=== PATIENT | female | born 1955 | race Caucasian/White ===

== ENCOUNTER 2021-08-02 17:41 | Inpatient (IN) | payer MEDICARE ==
[2021-08-02 18:25] LABS: #Lymphocytes 1.5 thou/uL (1.20-3.40); #Monocytes 0.5 thou/uL (0.11-0.59); #Neutrophils 6.9 thou/uL (1.40-6.50); %Basophils 0.3 % (0.0-1.0); %Eosinophils 0.5 % (0.0-10.0); %Lymphocytes 16.3 % (21.0-51.0); %Neutrophils 76.9 % (42.0-75.0); Hemoglobin 14.2 g/dL (12.0-16.0); Mean Corpuscular HGB CONC 33.7 g/dL (32.0-36.0); Mean Corpuscular Hemoglobin 31.8 pg (27.0-31.0); Mean Corpuscular Volume 94.3 fL (78.0-98.0); Mean Platelet Volume 8.1 fL (7.4-10.4); Platelet Count 214 thou/uL (130-400); RBC Distribution Width 11.6 % (11.5-14.5); Red Blood Cell (RBC) Count 4.46 mill/uL (4.20-5.40)
[2021-08-02 18:49] LABS: ALT (SGPT) 24 U/L (8-55); AST (SGOT) 84 U/L (5-34); Albumin 3.6 g/dL (3.4-4.8); Alkaline Phosphatase 63 U/L (40-110); Anion Gap 12 mmol/L (10-20); BUN (Urea Nitrogen) 10 mg/dL (9.8-20.1); Bilirubin, Total 0.4 mg/dL (0.2-1.2); CK (CPK) 932 U/L (29-168); Calc. Creatinine Clearance 0 mL/min (70-130); Carbon Dioxide 25 mmol/L (23-31); Chloride 108 mmol/L (98-107); Globulin 2.9 g/dL (2.4-3.5); Glucose 113 mg/dL (80-115); Lipase 32 U/L (8-78); Potassium 3.9 mmol/L (3.5-5.1); Protein, Total 6.5 g/dL (5.8-8.1); Sodium 141 mmol/L (136-145)
[2021-08-02 19:37] LABS: CKMB 99.7 ng/mL (0-6.6)
[2021-08-02] MEDS ORDERED: Morphine 4 MG/ML VIAL ONE (19:47)
[2021-08-02] MEDS ORDERED: Enoxaparin Sodium 60 MG/0.6 ML SYRINGE ONE (21:07)
[2021-08-02] MEDS ORDERED: Ondansetron ODT 4 MG TAB SL PRN (21:45)
[2021-08-02] MEDS ORDERED: Sodium Chloride 0.9% 1,000 ML IV SCH (21:45)
[2021-08-02] MEDS ORDERED: Ondansetron PF 4 MG/2 ML Vial IVP PRN (21:45)
[2021-08-02 22:40] LABS: Critical Call Chem Troponin I RESULT DECREASING; Troponin I 20.674 ng/mL (< 0.028)
[2021-08-02 22:43] VITALS: BMI 24.0
[2021-08-03 01:42] LABS: Critical Call Chem Troponin I RESULT DECREASING; Troponin I 19.962 ng/mL (< 0.028)
[2021-08-03] MEDS: Nitroglycerin 0.4 MG TAB (25 Tab Bottle) ONE ×2 (02:34→02:44)
[2021-08-03] MEDS ORDERED: Nitroglycerin 0.4 MG TAB (25 Tab Bottle) SL PRN (02:43)
[2021-08-03] MEDS: Morphine 2 MG/ML VIAL SLOW IVP PRN ×3 (02:48→14:04)
[2021-08-03] MEDS: Enoxaparin Sodium 60 MG/0.6 ML SYRINGE SC SCH ×2 (09:16→20:40)
[2021-08-03] MEDS: Aspirin Chewable 81 MG TAB PO SCH (09:16)
[2021-08-03] MEDS: Escitalopram Oxalate 20 mg Tablet PO SCH (09:16)
[2021-08-03] MEDS ORDERED: hydrALAZINE 20 MG/ML VIAL SLOW IVP PRN (15:25)
[2021-08-03] MEDS ORDERED: Communication Order-Pharmacy FS PRN (17:00)
[2021-08-03] MEDS ORDERED: Ondansetron PF 4 MG/2 ML Vial IVP PRN (20:16)
[2021-08-03] MEDS: Gabapentin 300 MG CAP PO SCH (20:41)
[2021-08-03] MEDS: Nitroglycerin 2% Ointment 1 INCH/1 GM Packet TOP SCH (23:45)
[2021-08-04 05:08] LABS: #Basophils 0.1 thou/uL (0.0-0.2); #Lymphocytes 2.5 thou/uL (1.20-3.40); #Neutrophils 8.4 thou/uL (1.40-6.50); %Basophils 0.4 % (0.0-1.0); %Eosinophils 0.4 % (0.0-10.0); %Lymphocytes 20.6 % (21.0-51.0); %Monocytes 8.5 % (0.0-10.0); %Neutrophils 70.1 % (42.0-75.0); Hemoglobin 13.9 g/dL (12.0-16.0); Mean Corpuscular HGB CONC 33.9 g/dL (32.0-36.0); Mean Corpuscular Hemoglobin 31.9 pg (27.0-31.0); Mean Platelet Volume 8.4 fL (7.4-10.4); Platelet Count 221 thou/uL (130-400); RBC Distribution Width 11.7 % (11.5-14.5); Red Blood Cell (RBC) Count 4.34 mill/uL (4.20-5.40)
[2021-08-04 05:31] LABS: Anion Gap 18 mmol/L (10-20); BUN (Urea Nitrogen) 5 mg/dL (9.8-20.1); Calc. Creatinine Clearance 66 mL/min (70-130); Carbon Dioxide 21 mmol/L (23-31); Chloride 105 mmol/L (98-107); Glucose 109 mg/dL (80-115); Potassium 3.6 mmol/L (3.5-5.1); Sodium 140 mmol/L (136-145)
[2021-08-04] MEDS: Aspirin Chewable 81 MG TAB PO SCH (05:59)
[2021-08-04] MEDS: Nitroglycerin 2% Ointment 1 INCH/1 GM Packet TOP SCH ×3 (05:59→17:41)
[2021-08-04] MEDS: Escitalopram Oxalate 20 mg Tablet PO SCH (05:59)
[2021-08-04] MEDS ORDERED: Verapamil 5 MG/2 ML VIAL ONE (06:26)
[2021-08-04] MEDS ORDERED: Lidocaine 1% PF 5 ML VIAL ONE (06:26)
[2021-08-04] MEDS ORDERED: Heparin 10,000 UNITS/ 10 ML VIAL ONE (06:26)
[2021-08-04] MEDS ORDERED: Nitroglycerin 100MG/250ML BOT 250 ML ONE (06:26)
[2021-08-04] MEDS ORDERED: Midazolam HCl 2 mg/2 ml Vial ONE (07:14)
[2021-08-04] MEDS ORDERED: Fentanyl 100 MCG/2 ML VIAL ONE (07:14)
[2021-08-04] MEDS ORDERED: Nitroglycerin 0.4 MG TAB (25 Tab Bottle) SL PRN (08:20)
[2021-08-04] MEDS ORDERED: Acetaminophen/Codeine 30-300mg Tablet PO PRN ×2 (08:20)
[2021-08-04] MEDS ORDERED: Sodium Chloride 0.9% 200 ML IV PRN (08:20)
[2021-08-04] MEDS ORDERED: Iopamidol 370 76% 100 ML VIAL ONE (09:46)
[2021-08-04] MEDS ORDERED: Enoxaparin Sodium 60 MG/0.6 ML SYRINGE SC SCH ×2 (11:00→21:00)
[2021-08-04] MEDS: Metoprolol Tartrate 25 MG TAB PO SCH ×2 (11:03→20:48)
[2021-08-04 16:46] LABS: Campy jejuni + coli by PCR Negative (Negative); STEC Shiga Toxin 1+2 Negative (Negative); Salmonella spp. by PCR Negative (Negative); Shigella spp + EIEC by PCR Negative (Negative)
[2021-08-04] MEDS ORDERED: Communication Order-Pharmacy FS SCH (17:42)
[2021-08-04] MEDS: Gabapentin 300 MG CAP PO SCH (20:48)
[2021-08-04] MEDS ORDERED: Atorvastatin Calcium 40 MG TAB PO SCH (21:00)
[2021-08-04] MEDS ORDERED: Floranex 1 GM Packet PO SCH (21:00)
[2021-08-05] MEDS: Nitroglycerin 2% Ointment 1 INCH/1 GM Packet TOP SCH ×2 (00:49→11:36)
[2021-08-05 04:34] LABS: #Basophils 0.1 thou/uL (0.0-0.2); #Eosinphils 0.1 thou/uL (0.0-0.7); #Lymphocytes 2.3 thou/uL (1.20-3.40); #Monocytes 1.2 thou/uL (0.11-0.59); %Basophils 0.6 % (0.0-1.0); %Eosinophils 0.9 % (0.0-10.0); %Lymphocytes 21.7 % (21.0-51.0); %Monocytes 11.1 % (0.0-10.0); %Neutrophils 65.6 % (42.0-75.0); Hemoglobin 12.3 g/dL (12.0-16.0); Mean Corpuscular HGB CONC 33.1 g/dL (32.0-36.0); Mean Corpuscular Hemoglobin 31.5 pg (27.0-31.0); Mean Corpuscular Volume 95.2 fL (78.0-98.0); Platelet Count 195 thou/uL (130-400); RBC Distribution Width 11.7 % (11.5-14.5); Red Blood Cell (RBC) Count 3.91 mill/uL (4.20-5.40); White Blood Cell (WBC) Count 10.6 thou/uL (4.8-10.8)
[2021-08-05 04:54] LABS: Anion Gap 14 mmol/L (10-20); BUN (Urea Nitrogen) 8 mg/dL (9.8-20.1); Calc. Creatinine Clearance 67 mL/min (70-130); Calcium 8.7 mg/dL (7.8-10.44); Carbon Dioxide 24 mmol/L (23-31); Chloride 105 mmol/L (98-107); Glucose 96 mg/dL (80-115); Potassium 3.2 mmol/L (3.5-5.1); Sodium 140 mmol/L (136-145)
[2021-08-05] MEDS: Metoprolol Tartrate 25 MG TAB PO SCH (05:22)
[2021-08-05] MEDS ORDERED: fentaNYL Citrate/PF 100 MCG/2 ML SYRINGE ONE ×2 (06:25)
[2021-08-05] MEDS ORDERED: Midazolam HCl 5 mg/5 ml Vial ONE (06:25)
[2021-08-05] MEDS ORDERED: Dexamethasone 4 mg/ml Vial ONE (06:46)
[2021-08-05] MEDS ORDERED: EPINEPHrine 1 MG/ML AMP ONE (06:46)
[2021-08-05] MEDS ORDERED: Bupivacaine PF 0.5% 30 ML VIAL ONE (06:46)
[2021-08-05] MEDS ORDERED: Albumin 5% 500 ML ONE (06:46)
[2021-08-05] MEDS ORDERED: Midazolam HCl 2 mg/2 ml Vial ONE (06:58)
[2021-08-05] MEDS ORDERED: Lidocaine 1% MPF 2 ML VIAL ONE (06:58)
[2021-08-05] MEDS ORDERED: Heparin 10,000 UNITS/1 ML VIAL 30,000 UNITS in Sodium Chloride 0.9% 1,000 ML FS SCH (07:15)
[2021-08-05] MEDS ORDERED: Sodium Chloride 0.9% 100 ML ONE (07:20)
[2021-08-05] MEDS ORDERED: CEFAZOLIN 2 GM VIAL ONE (07:20)
[2021-08-05] MEDS ORDERED: CEFAZOLIN 2 GM in Sodium Chloride 0.9% 100 ML IVPB SCH (07:30)
[2021-08-05] MEDS ORDERED: Calcium Chloride 1 GM/10 ML Abboject SYRINGE ONE (07:31)
[2021-08-05] MEDS ORDERED: Mannitol 12.5 GM/50 ML ONE (07:31)
[2021-08-05] MEDS ORDERED: Papaverine 60 MG/2 ML VIAL ONE (07:31)
[2021-08-05] MEDS ORDERED: PROPOFOL 200 MG/20 ML VIAL ONE (07:31)
[2021-08-05] MEDS ORDERED: Thrombin 5000 UNITS/5 ML VIAL ONE (07:31)
[2021-08-05] MEDS ORDERED: Magnesium Sulfate 1 GM/2 ML VIAL ONE (07:31)
[2021-08-05] MEDS ORDERED: Lidocaine 2% PF 100 mg/5 ml Syringe ONE (07:31)
[2021-08-05] MEDS ORDERED: Ondansetron PF 4 MG/2 ML Vial ONE (07:31)
[2021-08-05] MEDS ORDERED: Labetalol HCl 100 MG/20 ML VIAL ONE (07:31)
[2021-08-05] MEDS ORDERED: Protamine Sulfate 250 MG/25 ML VIAL ONE (07:31)
[2021-08-05] MEDS ORDERED: DOPamine 400 MG/10 ML VIAL ONE (07:31)
[2021-08-05] MEDS ORDERED: Heparin 5,000 UNITS/ML VIAL ONE (07:31)
[2021-08-05] MEDS ORDERED: Vecuronium 10 MG VIAL ONE ×2 (07:31→13:02)
[2021-08-05] MEDS ORDERED: Cardioplegic Soln 1,000 ML BAG ONE (07:31)
[2021-08-05] MEDS ORDERED: Sodium Bicarb 50 MEQ/50 ML Abboject 8.4% SYRINGE ONE (07:31)
[2021-08-05] MEDS ORDERED: Aminocaproic Acid 5 GM/20 ML VIAL ONE (07:31)
[2021-08-05] MEDS ORDERED: Heparin 30,000 units/30 ml VIAL ONE (07:31)
[2021-08-05] MEDS ORDERED: Norepinephrine 4 MG/4 ML VIAL ONE (11:19)
[2021-08-05] MEDS ORDERED: Heparin 10,000 UNITS/ 10 ML VIAL ONE (11:33)
[2021-08-05] MEDS ORDERED: Amiodarone 150 MG/3 ML VIAL ONE (12:09)
[2021-08-05] MEDS ORDERED: Milrinone 10 MG/10 ML VIAL ONE (12:23)
[2021-08-05] MEDS ORDERED: Milrinone Lactate/D5W 20 MG in Premix Bag 1 BAG IV SCH (12:45)
[2021-08-05] MEDS ORDERED: CEFAZOLIN 1 GM VIAL ONE (12:53)
[2021-08-05] MEDS ORDERED: PHENYLEPHRINE-NS 100 MCG/ML 10 ML SYRINGE ONE (13:02)
[2021-08-05] MEDS ORDERED: Albumin 5% 250 ML ONE (13:13)
[2021-08-05] MEDS ORDERED: Nitroglycerin 50 MG/250 ML BOT 250 ML IVPB PRN (14:42)
[2021-08-05] MEDS ORDERED: Bisacodyl 10 MG SUPP PR PRN (14:42)
[2021-08-05] MEDS ORDERED: Magnesium 2 GM/50 ML(in water) 2 GM in Premix Bag 1 BAG IVPB SCH (14:42)
[2021-08-05] MEDS ORDERED: Ondansetron PF 4 MG/2 ML Vial IVP PRN (14:42)
[2021-08-05] MEDS ORDERED: Bisacodyl 5 MG TAB PO PRN (14:42)
[2021-08-05] MEDS ORDERED: Morphine 2 MG/ML VIAL SLOW IVP PRN (14:42)
[2021-08-05] MEDS ORDERED: traMADol HCl 50 MG TAB PO PRN ×2 (14:42)
[2021-08-05] MEDS ORDERED: Hetastarch 6% 500 ML 500 ML IVPB PRN (14:42)
[2021-08-05] MEDS ORDERED: Mag-Al 1200 mg/1200 mg/30 ML UDCUP PO PRN (14:42)
[2021-08-05] MEDS ORDERED: Fentanyl 100 MCG/2 ML VIAL SLOW IVP PRN ×2 (14:42)
[2021-08-05] MEDS ORDERED: Ventilator Sedation Protocol 1 EACH FS ONE (14:42)
[2021-08-05] MEDS ORDERED: DOPamine 400 MG/D5W 250 ML 250 ML IVPB PRN (14:42)
[2021-08-05] MEDS ORDERED: Guaifenesin DM 100-10/5 ML UDCUP PO PRN (14:42)
[2021-08-05] MEDS ORDERED: Acetaminophen 325 MG TAB PO PRN (14:42)
[2021-08-05] MEDS ORDERED: Norepinephrine 8 MG/0.9% NS 250 ML IVPB PRN (14:42)
[2021-08-05] MEDS ORDERED: hydrALAZINE 20 MG/ML VIAL SLOW IVP PRN (14:42)
[2021-08-05] MEDS ORDERED: Milrinone 20 MG in Sodium Chloride 0.9% 100 ML IVPB SCH (14:45)
[2021-08-05 14:55] LABS: #Eosinphils 0.1 thou/uL (0.0-0.7); #Lymphocytes 1.1 thou/uL (1.20-3.40); #Monocytes 1.1 thou/uL (0.11-0.59); #Neutrophils 16.7 thou/uL (1.40-6.50); %Basophils 0.1 % (0.0-1.0); %Eosinophils 0.5 % (0.0-10.0); %Lymphocytes 5.8 % (21.0-51.0); %Neutrophils 87.6 % (42.0-75.0); Hemoglobin 12.2 g/dL (12.0-16.0); Mean Corpuscular HGB CONC 32.3 g/dL (32.0-36.0); Mean Corpuscular Hemoglobin 29.9 pg (27.0-31.0); Mean Corpuscular Volume 92.5 fL (78.0-98.0); Mean Platelet Volume 8.5 fL (7.4-10.4); Platelet Count 181 thou/uL (130-400); RBC Distribution Width 13.8 % (11.5-14.5); Red Blood Cell (RBC) Count 4.09 mill/uL (4.20-5.40); White Blood Cell (WBC) Count 19.1 thou/uL (4.8-10.8)
[2021-08-05] MEDS ORDERED: Lorazepam 2 MG/ML VIAL SLOW IVP PRN (15:00)
[2021-08-05] MEDS ORDERED: Propofol 1,000 MG/100 ML VIAL IV PRN (15:00)
[2021-08-05] MEDS ORDERED: Dextrose 50% Abboject 50 ML SYRINGE SLOW IVP PRN (15:00)
[2021-08-05] MEDS ORDERED: Fentanyl CADD 100 ML IV SCH (15:00)
[2021-08-05] MEDS ORDERED: Dextrose 5% in Water 1,000 ML IV PRN (15:00)
[2021-08-05] MEDS ORDERED: Propofol BOLUS 1,000 MG/100 ML VIAL IV PRN (15:00)
[2021-08-05] MEDS ORDERED: Fentanyl BOLUS 250 ML IVPB PRN (15:00)
[2021-08-05] MEDS ORDERED: Morphine 4 MG/ML VIAL SLOW IVP PRN (15:00)
[2021-08-05] MEDS ORDERED: DISCONTINUE PREVIOUS NARCOTIC PAIN MEDICATIONS AND BENZODIAZEPINES FS SCH (15:00)
[2021-08-05 15:03] LABS: INR-International Normal Ratio 1.3; PTT 33.5 sec (22.9-36.1); Prothrombin Time 16.3 sec (12.0-14.7)
[2021-08-05] MEDS: NS 0.9% w/ 20 MEQ KCL 1,000 ML IV SCH (15:12)
[2021-08-05 15:14] LABS: Anion Gap 19 mmol/L (10-20); BUN (Urea Nitrogen) 8 mg/dL (9.8-20.1); Calc. Creatinine Clearance 69 mL/min (70-130); Calcium 8.2 mg/dL (7.8-10.44); Carbon Dioxide 21 mmol/L (23-31); Chloride 111 mmol/L (98-107); Estimated GFR 89; Glucose 216 mg/dL (80-115); Potassium 3.3 mmol/L (3.5-5.1); Sodium 148 mmol/L (136-145)
[2021-08-05] MEDS: Insulin Regular 300 UNITS/3 ML VIAL SC PRN ×2 (15:17→17:37)
[2021-08-05 15:18] LABS: Base Excess (BEa) -4.6 mEq/L (-2.0 to +3.0); CO2 Tension 35.4 mmHg (35.0-45.0); Calcium, Ionized (arterial) 0.98 mmol/L (1.12-1.30); Carboxyhemoglobin (COHb) 0.5 gm% (0.0-3.0); Hemoglobin (Hb) 13.1 g/dL (12.0-16.0); O2 Tension (PaO2), arterial 102.3 mmHg (> 80.0); Potassium - ABG Lab 3.21 mmol/L (3.70-5.30); pH, Arterial 7.37 (7.35-7.45)
[2021-08-05] MEDS: fentaNYL Citrate-0.9 % NaCl/PF 100 ML IV SCH (15:31)
[2021-08-05] MEDS: CEFAZOLIN 2 GM in Sodium Chloride 0.9% 100 ML IVPB SCH ×2 (15:32→22:42)
[2021-08-05 16:11] LABS: Puncture Site Arterial Line
[2021-08-05] MEDS: Potassium Chloride 20 MEQ/100 ML PREMIX BAG IVPB PRN (16:34)
[2021-08-05] MEDS: Ketorolac Tromethamine 30 MG/ML VIAL IVP SCH ×2 (17:19→23:56)
[2021-08-05 17:45] LABS: Glucose 234 mg/dL (80-115)
[2021-08-05] MEDS: Famotidine/PF 20 mg/2ml Vial SLOW IVP SCH (20:16)
[2021-08-05 21:26] LABS: Hemoglobin 11.3 g/dL (12.0-16.0)
[2021-08-05 21:43] LABS: Glucose 186 mg/dL (80-115)
[2021-08-05 21:56] LABS: Anion Gap 11 mmol/L (10-20); BUN (Urea Nitrogen) 12 mg/dL (9.8-20.1); Calc. Creatinine Clearance 75 mL/min (70-130); Calcium 7.7 mg/dL (7.8-10.44); Carbon Dioxide 24 mmol/L (23-31); Chloride 116 mmol/L (98-107); Estimated GFR 95; Glucose 187 mg/dL (80-115); Potassium 2.5 mmol/L (3.5-5.1); Sodium 148 mmol/L (136-145)
[2021-08-05] MEDS ORDERED: Potassium Chloride 40 MEQ in Premix Bag 1 BAG IVPB SCH (22:30)
[2021-08-06] MEDS ORDERED: Milrinone Lactate/D5W 20 MG in Premix Bag 1 BAG IVPB SCH (00:01)
[2021-08-06] MEDS: NS 0.9% w/ 20 MEQ KCL 1,000 ML IV SCH (01:44)
[2021-08-06] MEDS: Insulin Regular 300 UNITS/3 ML VIAL SC PRN (04:32)
[2021-08-06 04:48] LABS: #Basophils 0.1 thou/uL (0.0-0.2); #Lymphocytes 0.7 thou/uL (1.20-3.40); #Monocytes 1.2 thou/uL (0.11-0.59); #Neutrophils 9.1 thou/uL (1.40-6.50); %Basophils 0.8 % (0.0-1.0); %Eosinophils 0.1 % (0.0-10.0); %Lymphocytes 5.9 % (21.0-51.0); %Monocytes 10.7 % (0.0-10.0); %Neutrophils 82.5 % (42.0-75.0); Hemoglobin 10.6 g/dL (12.0-16.0); Mean Corpuscular HGB CONC 33.1 g/dL (32.0-36.0); Mean Corpuscular Hemoglobin 30.6 pg (27.0-31.0); Mean Corpuscular Volume 92.2 fL (78.0-98.0); Mean Platelet Volume 9.2 fL (7.4-10.4); Platelet Count 124 thou/uL (130-400); RBC Distribution Width 14.4 % (11.5-14.5); Red Blood Cell (RBC) Count 3.47 mill/uL (4.20-5.40); White Blood Cell (WBC) Count 11.1 thou/uL (4.8-10.8)
[2021-08-06 05:15] LABS: Anion Gap 12 mmol/L (10-20); BUN (Urea Nitrogen) 12 mg/dL (9.8-20.1); Calc. Creatinine Clearance 75 mL/min (70-130); Calcium 7.7 mg/dL (7.8-10.44); Carbon Dioxide 23 mmol/L (23-31); Chloride 118 mmol/L (98-107); Estimated GFR 95; Glucose 130 mg/dL (80-115); Potassium 3.8 mmol/L (3.5-5.1); Sodium 149 mmol/L (136-145)
[2021-08-06] MEDS: Ketorolac Tromethamine 30 MG/ML VIAL IVP SCH ×3 (05:46→18:40)
[2021-08-06] MEDS: CEFAZOLIN 2 GM in Sodium Chloride 0.9% 100 ML IVPB SCH (05:46)
[2021-08-06] MEDS: Potassium Chloride 20 MEQ/100 ML PREMIX BAG IVPB PRN (05:47)
[2021-08-06] MEDS: fentaNYL Citrate-0.9 % NaCl/PF 100 ML IV SCH (06:28)
[2021-08-06] MEDS ORDERED: NS 0.9% w/ 20 MEQ KCL 1,000 ML IV SCH (07:06)
[2021-08-06] MEDS ORDERED: Furosemide 20 MG/2 ML VIAL SLOW IVP SCH (07:15)
[2021-08-06] MEDS ORDERED: Potassium Chloride 20 MEQ in Premix Bag 1 BAG IVPB SCH (07:30)
[2021-08-06 07:35] LABS: Actual Bicarbonate (HCO3a) 23.4 mEq/L (22-28); Base Excess (BEa) -1.2 mEq/L (-2.0 to +3.0); CO2 Tension 38.7 mmHg (35.0-45.0); Calcium, Ionized (arterial) 1.15 mmol/L (1.12-1.30); Carboxyhemoglobin (COHb) 0.3 gm% (0.0-3.0); Hemoglobin (Hb) 11.5 g/dL (12.0-16.0); O2 Tension (PaO2), arterial 164.1 mmHg (> 80.0); Potassium - ABG Lab 4.18 mmol/L (3.70-5.30)
[2021-08-06 08:12] LABS: Puncture Site Arterial Line
[2021-08-06 08:13] LABS: ALV-art Gradient 72.725 mmHg (0-20)
[2021-08-06] MEDS ORDERED: Aspirin 325 MG TAB PO SCH (09:00)
[2021-08-06 09:56] LABS: Actual Bicarbonate (HCO3a) 22.8 mEq/L (22-28); Base Excess (BEa) -2.4 mEq/L (-2.0 to +3.0); Calcium, Ionized (arterial) 1.09 mmol/L (1.12-1.30); Carboxyhemoglobin (COHb) 0.2 gm% (0.0-3.0); Hemoglobin (Hb) 10.9 g/dL (12.0-16.0); O2 Tension (PaO2), arterial 171.6 mmHg (> 80.0); Potassium - ABG Lab 4.15 mmol/L (3.70-5.30); pH, Arterial 7.36 (7.35-7.45)
[2021-08-06] MEDS: Magnesium 2 GM/50 ML(in water) 2 GM in Premix Bag 1 BAG IVPB SCH (10:08)
[2021-08-06] MEDS: Famotidine/PF 20 mg/2ml Vial SLOW IVP SCH ×2 (10:08→20:35)
[2021-08-06 10:12] LABS: Glucose 122 mg/dL (80-115)
[2021-08-06 15:05] LABS: Glucose 121 mg/dL (80-115)
[2021-08-06] MEDS ORDERED: Carvedilol 3.125 MG TAB PO SCH (17:45)
[2021-08-06] MEDS ORDERED: Furosemide 20 MG TAB PO SCH (17:45)
[2021-08-06] MEDS ORDERED: Fentanyl 100 MCG/2 ML VIAL SLOW IVP PRN ×2 (20:23)
[2021-08-06] MEDS: traMADol HCl 50 MG TAB PO PRN (20:36)
[2021-08-07] MEDS: Ketorolac Tromethamine 30 MG/ML VIAL IVP SCH ×5 (00:01→23:29)
[2021-08-07 04:56] LABS: Anion Gap 14 mmol/L (10-20); BUN (Urea Nitrogen) 18 mg/dL (9.8-20.1); Calc. Creatinine Clearance 70 mL/min (70-130); Calcium 8.2 mg/dL (7.8-10.44); Carbon Dioxide 24 mmol/L (23-31); Chloride 113 mmol/L (98-107); Estimated GFR 93; Glucose 97 mg/dL (80-115); Sodium 146 mmol/L (136-145)
[2021-08-07 05:33] LABS: #Lymphocytes 2.7 thou/uL (1.20-3.40); #Monocytes 1.1 thou/uL (0.11-0.59); #Neutrophils 11.7 thou/uL (1.40-6.50); %Basophils 0.2 % (0.0-1.0); %Eosinophils 0.2 % (0.0-10.0); %Lymphocytes 17.6 % (21.0-51.0); %Monocytes 6.8 % (0.0-10.0); %Neutrophils 75.2 % (42.0-75.0); Anisocytosis SLIGHT = 6-15 cells (100X) (0-5/hpf); Hemoglobin 10.5 g/dL (12.0-16.0); MDiff Complete? YES; Mean Corpuscular HGB CONC 31.8 g/dL (32.0-36.0); Mean Corpuscular Hemoglobin 30.2 pg (27.0-31.0); Mean Corpuscular Volume 94.8 fL (78.0-98.0); Mean Platelet Volume 9.8 fL (7.4-10.4); Platelet Count 147 thou/uL (130-400); Red Blood Cell (RBC) Count 3.48 mill/uL (4.20-5.40); White Blood Cell (WBC) Count 15.6 thou/uL (4.8-10.8)
[2021-08-07] MEDS ORDERED: Mag-Al 1200 mg/1200 mg/30 ML UDCUP PO PRN (07:23)
[2021-08-07] MEDS ORDERED: diphenhydrAMINE 25 MG CAP PO PRN (07:23)
[2021-08-07] MEDS ORDERED: Bisacodyl 10 MG SUPP PR PRN (07:23)
[2021-08-07] MEDS ORDERED: Bisacodyl 5 MG TAB PO PRN (07:23)
[2021-08-07] MEDS ORDERED: Zolpidem Tartrate 5 MG TAB PO PRN (07:23)
[2021-08-07] MEDS ORDERED: Guaifenesin DM 100-10/5 ML UDCUP PO PRN (07:23)
[2021-08-07] MEDS ORDERED: Mineral Oil ENEMA PR PRN (07:23)
[2021-08-07] MEDS ORDERED: Nitroglycerin 0.4 MG TAB (25 Tab Bottle) SL PRN (07:23)
[2021-08-07] MEDS ORDERED: Milk Of Magnesia 30 ML UDCUP PO PRN (07:23)
[2021-08-07] MEDS ORDERED: Carvedilol 3.125 MG TAB PO SCH (08:00)
[2021-08-07] MEDS ORDERED: hydrALAZINE 20 MG/ML VIAL SLOW IVP PRN ×4 (09:03→09:43)
[2021-08-07] MEDS: Lisinopril 5 MG TAB PO SCH ×2 (10:06→20:37)
[2021-08-07] MEDS: Furosemide 20 MG TAB PO SCH ×2 (10:07→14:51)
[2021-08-07] MEDS: Carvedilol 6.25 MG TAB PO SCH ×2 (10:07→17:40)
[2021-08-07] MEDS: Potassium Chloride 10 MEQ TAB PO SCH ×2 (10:07→17:40)
[2021-08-07] MEDS: Magnesium 2 GM/50 ML(in water) 2 GM in Premix Bag 1 BAG IVPB SCH (10:09)
[2021-08-07] MEDS: traMADol HCl 50 MG TAB PO PRN (10:21)
[2021-08-07] MEDS: Aspirin 325 mg Enteric Coated Tablet PO SCH (10:21)
[2021-08-08] MEDS: Ketorolac Tromethamine 30 MG/ML VIAL IVP SCH ×3 (05:00→17:58)
[2021-08-08] MEDS: Carvedilol 6.25 MG TAB PO SCH ×2 (10:11→17:58)
[2021-08-08] MEDS: Lisinopril 5 MG TAB PO SCH (10:12)
[2021-08-08] MEDS: Aspirin 325 mg Enteric Coated Tablet PO SCH (10:12)
[2021-08-08] MEDS: Potassium Chloride 10 MEQ TAB PO SCH ×2 (10:12→17:57)
[2021-08-08] MEDS: Furosemide 20 MG TAB PO SCH ×2 (10:12→18:06)
[2021-08-08] MEDS: traMADol HCl 50 MG TAB PO PRN (11:41)
[2021-08-08] MEDS: Atorvastatin Calcium 40 MG TAB PO SCH ×2 (20:45→21:01)
[2021-08-09] MEDS: traMADol HCl 50 MG TAB PO PRN ×2 (00:32→14:45)
[2021-08-09 04:42] LABS: Cardiac Risk 4.9 (Less than 4.5)
[2021-08-09] MEDS ORDERED: Metolazone 5 MG TAB PO SCH (07:00)
[2021-08-09] MEDS: Potassium Chloride 10 MEQ TAB PO SCH ×2 (09:07→17:37)
[2021-08-09] MEDS: Carvedilol 6.25 MG TAB PO SCH ×2 (09:07→17:37)
[2021-08-09] MEDS: Furosemide 20 MG TAB PO SCH ×2 (09:07→14:45)
[2021-08-09] MEDS: Aspirin 325 mg Enteric Coated Tablet PO SCH (09:07)
[2021-08-09] MEDS: Atorvastatin Calcium 40 MG TAB PO SCH (20:51)
[2021-08-09] MEDS ORDERED: Acetaminophen 325 MG TAB PO SCH (23:30)
[2021-08-10] MEDS: traMADol HCl 50 MG TAB PO PRN (06:03)
[2021-08-10] MEDS ORDERED: Empagliflozin 10 MG TAB PO SCH (09:00)
[2021-08-10] MEDS: Aspirin 325 mg Enteric Coated Tablet PO SCH (10:11)
[2021-08-10] MEDS: Carvedilol 6.25 MG TAB PO SCH (10:11)
[2021-08-10] MEDS: Potassium Chloride 10 MEQ TAB PO SCH (10:11)
[2021-08-10] MEDS: Furosemide 20 MG TAB PO SCH (10:12)
[2021-08-10 14:57] VITALS: BP 135/80; TEMP 98
[2021-08-15 15:00] LABS: Actual Bicarbonate (HCO3a) 21.4 mEq/L (22-28); Analyzer IN Cardio OR; CO2 Tension 28.5 mmHg (35.0-45.0); Calcium, Ionized (arterial) 1.09 mmol/L (1.12-1.30); Carboxyhemoglobin (COHb) 0.6 gm% (0.0-3.0); Hemoglobin (Hb) 11.3 g/dL (12.0-16.0); Potassium - ABG Lab 3.11 mmol/L (3.70-5.30); pH, Arterial 7.49 (7.35-7.45)
[2021-08-15 15:01] LABS: Actual Bicarbonate (HCO3v) 26 mEq/L (22-28); Analyzer IN Cardio OR; Base Excess 1.8 mEq/L (-2.0 to +3.0); Calcium, Ionized (venous) 0.97 mmol/L (1.16-1.32); Chloride (VBG) 109 mmol/L (98-106); Hemoglobin (Hb) 7.4 g/dL (11.7-16.1); Potassium (VBG) 3.85 mmol/L (3.70-5.30); Sodium 138.4 mmol/L (133-146); pH (venous) 7.44 (7.32-7.43)
[2021-08-15 15:01] LABS: Actual Bicarbonate (HCO3a) 21.7 mEq/L (22-28); Analyzer IN Cardio OR; CO2 Tension 27.8 mmHg (35.0-45.0); Calcium, Ionized (arterial) 0.94 mmol/L (1.12-1.30); Carboxyhemoglobin (COHb) 0.8 gm% (0.0-3.0); Hemoglobin (Hb) 7.1 g/dL (12.0-16.0); O2 Tension (PaO2), arterial 418.5 mmHg (> 80.0); Potassium - ABG Lab 4.52 mmol/L (3.70-5.30); pH, Arterial 7.51 (7.35-7.45)
[2021-08-15 15:01] LABS: Analyzer IN Cardio OR; Base Excess (BEa) -2.2 mEq/L (-2.0 to +3.0); CO2 Tension 30.5 mmHg (35.0-45.0); Calcium, Ionized (arterial) 1.07 mmol/L (1.12-1.30); Carboxyhemoglobin (COHb) 0.3 gm% (0.0-3.0); Hemoglobin (Hb) 10.4 g/dL (12.0-16.0); O2 Tension (PaO2), arterial 405.1 mmHg (> 80.0); Potassium - ABG Lab 3.07 mmol/L (3.70-5.30); pH, Arterial 7.46 (7.35-7.45)
[2021-08-15 15:02] LABS: Puncture Site Arterial Line
[2021-08-15 15:02] LABS: Puncture Site Arterial Line
[2021-08-15 15:02] LABS: Puncture Site Arterial Line
[2021-08-15 15:03] LABS: Actual Bicarbonate (HCO3a) 23.7 mEq/L (22-28); Analyzer IN Cardio OR; Base Excess (BEa) -0.4 mEq/L (-2.0 to +3.0); CO2 Tension 36.1 mmHg (35.0-45.0); Calcium, Ionized (arterial) 0.98 mmol/L (1.12-1.30); Carboxyhemoglobin (COHb) 0.8 gm% (0.0-3.0); Hemoglobin (Hb) 7.6 g/dL (12.0-16.0); Potassium - ABG Lab 4.04 mmol/L (3.70-5.30); pH, Arterial 7.44 (7.35-7.45)
[2021-08-15 15:03] LABS: Actual Bicarbonate (HCO3v) 25 mEq/L (22-28); Analyzer IN Cardio OR; Base Excess 0.1 mEq/L (-2.0 to +3.0); Calcium, Ionized (venous) 1.83 mmol/L (1.16-1.32); Chloride (VBG) 113 mmol/L (98-106); Hemoglobin (Hb) 7.7 g/dL (11.7-16.1); Potassium (VBG) 3.47 mmol/L (3.70-5.30); pH (venous) 7.42 (7.32-7.43)
[2021-08-15 15:04] LABS: Actual Bicarbonate (HCO3a) 21.8 mEq/L (22-28); Analyzer IN Cardio OR; CO2 Tension 37.2 mmHg (35.0-45.0); Calcium, Ionized (arterial) 1.22 mmol/L (1.12-1.30); Carboxyhemoglobin (COHb) 1.3 gm% (0.0-3.0); O2 Tension (PaO2), arterial 426.8 mmHg (> 80.0); pH, Arterial 7.39 (7.35-7.45)
[2021-08-15 15:04] LABS: Actual Bicarbonate (HCO3v) 27 mEq/L (22-28); Analyzer IN Cardio OR; Calcium, Ionized (venous) 1.15 mmol/L (1.16-1.32); Chloride (VBG) 108 mmol/L (98-106); Hemoglobin (Hb) 6.4 g/dL (11.7-16.1); Potassium (VBG) 3.23 mmol/L (3.70-5.30); Sodium 142.1 mmol/L (133-146); pH (venous) 7.39 (7.32-7.43)
[2021-08-15 15:04] LABS: Puncture Site Arterial Line
[2021-08-15 15:06] LABS: Hemoglobin (Hb) 5.8 g/dL (12.0-16.0); Puncture Site Arterial Line
[2021-08-15 15:07] LABS: Actual Bicarbonate (HCO3a) 21.6 mEq/L (22-28); Analyzer IN Cardio OR; CO2 Tension 27.8 mmHg (35.0-45.0); Carboxyhemoglobin (COHb) 0.8 gm% (0.0-3.0); Hemoglobin (Hb) 7.4 g/dL (12.0-16.0); O2 Tension (PaO2), arterial 443.2 mmHg (> 80.0); Potassium - ABG Lab 3.76 mmol/L (3.70-5.30); Puncture Site Arterial Line; pH, Arterial 7.51 (7.35-7.45)
[2021-08-15 15:07] LABS: Actual Bicarbonate (HCO3a) 21.7 mEq/L (22-28); Analyzer IN Cardio OR; CO2 Tension 33.2 mmHg (35.0-45.0); Calcium, Ionized (arterial) 1.07 mmol/L (1.12-1.30); O2 Tension (PaO2), arterial 188.7 mmHg (> 80.0); Potassium - ABG Lab 3.75 mmol/L (3.70-5.30); pH, Arterial 7.43 (7.35-7.45)
[2021-08-15 15:08] LABS: Puncture Site Arterial Line
== END 2021-08-10 14:00 | disposition home or self-care (01) | DRG 233 ==
LOC: ERS 17:41 → 2SW 20:00 → CCU 08-05 06:25 → 2NO 08-07 14:29
PROVIDERS: ADMIT Thoracic Surgery (Cardiothoracic Vascular Surgery); ATTEND Family Medicine
PROC: 4A023N7 Measurement of Cardiac Sampling and Pressure, Left Heart, Percutaneous Approach (ICD-10-PCS; 2021-08-04)
PROC: B2151ZZ Fluoroscopy of Left Heart using Low Osmolar Contrast (ICD-10-PCS; 2021-08-04)
PROC: B2111ZZ Fluoroscopy of Multiple Coronary Arteries using Low Osmolar Contrast (ICD-10-PCS; 2021-08-04)
PROC: 8E0ZXY6 Isolation (ICD-10-PCS; 2021-08-04)
PROC: 021209W Bypass Coronary Artery, Three Arteries from Aorta with Autologous Venous Tissue, Open Approach (ICD-10-PCS; principal; 2021-08-05)
PROC: 02100Z9 Bypass Coronary Artery, One Artery from Left Internal Mammary, Open Approach (ICD-10-PCS; 2021-08-05)
PROC: 06BQ4ZZ Excision of Left Saphenous Vein, Percutaneous Endoscopic Approach (ICD-10-PCS; 2021-08-05)
PROC: 06BP4ZZ Excision of Right Saphenous Vein, Percutaneous Endoscopic Approach (ICD-10-PCS; 2021-08-05)
PROC: 5A02210 Assistance with Cardiac Output using Balloon Pump, Continuous (ICD-10-PCS; 2021-08-05)
PROC: 3E033XZ Introduction of Vasopressor into Peripheral Vein, Percutaneous Approach (ICD-10-PCS; 2021-08-05)
PROC: 5A1221Z Performance of Cardiac Output, Continuous (ICD-10-PCS; 2021-08-05)
PROC: B24BZZ4 Ultrasonography of Heart with Aorta, Transesophageal (ICD-10-PCS; 2021-08-05)
PROC: 02L70CK Occlusion of Left Atrial Appendage with Extraluminal Device, Open Approach (ICD-10-PCS; 2021-08-05)
PROC: 0D9670Z Drainage of Stomach with Drainage Device, Via Natural or Artificial Opening (ICD-10-PCS; 2021-08-05)
PROC: 5A1935Z Respiratory Ventilation, Less than 24 Consecutive Hours (ICD-10-PCS; 2021-08-05)
DX: I21.4 Non-ST elevation (NSTEMI) myocardial infarction (principal); J95.821 Acute postprocedural respiratory failure; I42.9 Cardiomyopathy, unspecified; T82.855A Stenosis of coronary artery stent, initial encounter; Z20.822 Contact with and (suspected) exposure to COVID-19; I25.10 Atherosclerotic heart disease of native coronary artery without angina pectoris; Y83.1 Surgical operation with implant of artificial internal device as the cause of abnormal reaction of the patient, or of later complication, without mention of misadventure at the time of the procedure; I10 Essential (primary) hypertension; E78.00 Pure hypercholesterolemia, unspecified; F41.9 Anxiety disorder, unspecified; F32.A Depression, unspecified; R19.7 Diarrhea, unspecified; Z78.1 Physical restraint status; Z85.89 Personal history of malignant neoplasm of other organs and systems; Z92.21 Personal history of antineoplastic chemotherapy; Z98.890 Other specified postprocedural states; Z90.710 Acquired absence of both cervix and uterus; Z90.89 Acquired absence of other organs; Z87.891 Personal history of nicotine dependence; Z81.1 Family history of alcohol abuse and dependence; Z83.49 Family history of other endocrine, nutritional and metabolic diseases; Z88.6 Allergy status to analgesic agent; Z79.899 Other long term (current) drug therapy; Z95.5 Presence of coronary angioplasty implant and graft; Z90.49 Acquired absence of other specified parts of digestive tract; Z82.49 Family history of ischemic heart disease and other diseases of the circulatory system
CPT/HCPCS: 36415; 36416; 36430; 71045; 80048; 80053; 80061; 82550; 82553; 82805; 83690; 83880; 84484; 85025; 85610; 85730; 86850; 86900; 86901; 87324; 87449; 87505; 93005; 93010; 93306; 93458; 93798; 94002; 94003; 94640; 94760; 96372; 96374; 99152; 99153; C1725; C1751; J0171; J0282; J0690; J1100; J1265; J1644; J1650; J1815; J1885; J1940; J2001; J2150; J2250; J2260; J2270; J2405; J2440; J2704; J2720; J3010; J3370; J3475; J3480; J3490; J7050; J7620; P9016; P9035; P9045; P9059; Q0162; Q9967; S0017; S0020; S0028; U0003; U0005

== ENCOUNTER 2021-08-11 05:19 | Inpatient (IN) | payer MEDICARE ==
[2021-08-11] MEDS ORDERED: Morphine 4 MG/ML VIAL ONE (07:23)
[2021-08-11] MEDS ORDERED: Ondansetron PF 4 MG/2 ML Vial ONE (07:23)
[2021-08-11] MEDS ORDERED: ISOVUE-370 76%-LOCM 1 ML ONE (08:00)
[2021-08-11 08:21] LABS: Hemoglobin 17.4 g/dL (12.0-16.0); Mean Corpuscular Hemoglobin 29.7 pg (27.0-31.0); Mean Corpuscular Volume 92.9 fL (78.0-98.0); Mean Platelet Volume 9.7 fL (7.4-10.4); Platelet Count 376 thou/uL (130-400); RBC Distribution Width 14.6 % (11.5-14.5); Red Blood Cell (RBC) Count 5.88 mill/uL (4.20-5.40)
[2021-08-11 08:28] LABS: INR-International Normal Ratio 1.1; PTT 29.7 sec (22.9-36.1); Prothrombin Time 14.2 sec (12.0-14.7)
[2021-08-11 08:37] LABS: Acetaminophen Less than 10.0 mcg/mL (10.0-30.0); Alcohol Less than 10 mg/dL (Less than 10); Salicylate Less than 8.0 mg/dL (15.0-30.0)
[2021-08-11 08:39] LABS: ALT (SGPT) 58 U/L (8-55); AST (SGOT) 42 U/L (5-34); Albumin 3.5 g/dL (3.4-4.8); Alkaline Phosphatase 123 U/L (40-110); Anion Gap 28 mmol/L (10-20); BUN (Urea Nitrogen) 20 mg/dL (9.8-20.1); Bilirubin, Total 1.5 mg/dL (0.2-1.2); CK (CPK) 180 U/L (29-168); Calc. Creatinine Clearance 0 mL/min (70-130); Calcium 9.6 mg/dL (7.8-10.44); Carbon Dioxide 25 mmol/L (23-31); Chloride 88 mmol/L (98-107); Estimated GFR 78; Globulin 2.7 g/dL (2.4-3.5); Glucose 122 mg/dL (80-115); Lipase 20 U/L (8-78); Magnesium 2.1 mg/dL (1.6-2.6); Protein, Total 6.2 g/dL (5.8-8.1); Sodium 138 mmol/L (136-145)
[2021-08-11 08:47] LABS: Band 20 % (5-11); Lymphocytes 5 % (21-51); MDiff Complete? YES; Metamyelocyte 1 % (0-0); Monocytes 6 % (0-10); Neutrophil 60 % (42-75); Platelet Morphology Comment Appears Adequate; Polychromasia MODERATE = 3-4 cells (100X) (0-2/hpf); Reactive Lymphocytes 8 % (0-10); White Blood Cell (WBC) Count 27.1 thou/uL (4.8-10.8)
[2021-08-11] MEDS ORDERED: Aspirin Chewable 81 MG TAB ONE (08:50)
[2021-08-11] MEDS ORDERED: Estradiol 1 MG TAB PO SCH (09:00)
[2021-08-11] MEDS ORDERED: cefTRIAXone\\ROCEPHIN 2 GM VIAL ONE (09:05)
[2021-08-11] MEDS ORDERED: Potassium Chloride 20 MEQ/100 ML PREMIX BAG ONE (09:05)
[2021-08-11 09:06] LABS: CKMB 18.6 ng/mL (0-6.6)
[2021-08-11] MEDS ORDERED: Ketorolac Tromethamine 30 MG/ML VIAL ONE (09:14)
[2021-08-11] MEDS ORDERED: Enoxaparin Sodium 60 MG/0.6 ML SYRINGE ONE (09:14)
[2021-08-11] MEDS ORDERED: Vancomycin 1.5 GRAM/300 ML BAG 1.5 GM in Premix Bag 1 BAG IVPB SCH (10:00)
[2021-08-11 10:05] LABS: SARS-CoV-2 NAA Rapid Test Not Detected (NotDetected)
[2021-08-11] MEDS ORDERED: Senokot S 8.6-50 MG TAB PO PRN (10:20)
[2021-08-11] MEDS ORDERED: Bisacodyl 5 MG TAB PO PRN (10:20)
[2021-08-11] MEDS ORDERED: traMADol HCl 50 MG TAB PO PRN (11:43)
[2021-08-11 13:50] LABS: Lactic Acid 2.4 mmol/L (0.5-2.2)
[2021-08-11 14:03] LABS: Critical Call Chem Troponin I RESULT DECREASING; Troponin I 1.288 ng/mL (< 0.028)
[2021-08-11] MEDS: Morphine 2 MG/ML VIAL SLOW IVP PRN ×2 (14:09→20:36)
[2021-08-11] MEDS: Ondansetron ODT 4 MG TAB PO PRN ×2 (14:10→20:37)
[2021-08-11] MEDS: Lactated Ringer's 1,000 ML IV SCH (14:13)
[2021-08-11] MEDS: Ketorolac Tromethamine 30 MG/ML VIAL IVP SCH (17:21)
[2021-08-11] MEDS ORDERED: Pantoprazole 40 MG VIAL IVP SCH (20:30)
[2021-08-11] MEDS: Atorvastatin Calcium 40 MG TAB PO SCH (20:38)
[2021-08-11] MEDS: Carvedilol 6.25 MG TAB PO SCH (20:38)
[2021-08-11] MEDS: Floranex 1 GM Packet PO SCH (20:38)
[2021-08-11] MEDS: Gabapentin 300 MG CAP PO SCH (20:39)
[2021-08-11] MEDS: Estradiol 1 MG TAB PO SCH (20:39)
[2021-08-11] MEDS ORDERED: Enoxaparin Sodium 60 MG/0.6 ML SYRINGE SC SCH (21:00)
[2021-08-11] MEDS ORDERED: Non-Formulary Item 1 EACH (L.Acidoph,Paracasei, B.Lactis [Probiotic] 1 EACH Capsule) PO SCH (21:00)
[2021-08-11] MEDS ORDERED: Non-Formulary Item 1 EACH (Lansoprazole [Prevacid] 15 MG Cap) PO SCH (21:00)
[2021-08-11] MEDS ORDERED: Famotidine 20 MG TAB PO SCH (21:00)
[2021-08-11] MEDS ORDERED: Saccharomyces boulardii 250 MG CAP PO SCH (21:00)
[2021-08-12] MEDS: Ketorolac Tromethamine 30 MG/ML VIAL IVP SCH ×4 (01:12→17:18)
[2021-08-12] MEDS: Ondansetron ODT 4 MG TAB PO PRN (01:13)
[2021-08-12] MEDS: Lactated Ringer's 1,000 ML IV SCH (01:21)
[2021-08-12] MEDS: Morphine 2 MG/ML VIAL SLOW IVP PRN ×2 (04:46→21:47)
[2021-08-12 05:33] LABS: Anion Gap 22 mmol/L (10-20); BUN (Urea Nitrogen) 22 mg/dL (9.8-20.1); Calc. Creatinine Clearance 64 mL/min (70-130); Calcium 8.9 mg/dL (7.8-10.44); Carbon Dioxide 25 mmol/L (23-31); Chloride 93 mmol/L (98-107); Estimated GFR 83; Glucose 135 mg/dL (80-115); Sodium 137 mmol/L (136-145)
[2021-08-12 05:48] LABS: Hemoglobin 13.3 g/dL (12.0-16.0); Mean Corpuscular HGB CONC 32.4 g/dL (32.0-36.0); Mean Corpuscular Hemoglobin 30.1 pg (27.0-31.0); Mean Corpuscular Volume 92.9 fL (78.0-98.0); Mean Platelet Volume 9.3 fL (7.4-10.4); Platelet Count 309 thou/uL (130-400); RBC Distribution Width 14.6 % (11.5-14.5)
[2021-08-12 05:53] LABS: Potassium 2.9 mmol/L (3.5-5.1)
[2021-08-12 06:25] LABS: Magnesium 1.9 mg/dL (1.6-2.6)
[2021-08-12 06:30] LABS: Band 24 % (5-11); Lymphocytes 4 % (21-51); MDiff Complete? YES; Monocytes 6 % (0-10); Neutrophil 66 % (42-75); Red Blood Cell (RBC) Count 4.42 mill/uL (4.20-5.40); White Blood Cell (WBC) Count 29.9 thou/uL (4.8-10.8)
[2021-08-12] MEDS ORDERED: Pantoprazole 40 MG VIAL IVP SCH (09:00)
[2021-08-12] MEDS: Empagliflozin 10 MG TAB PO SCH ×2 (10:20→10:24)
[2021-08-12] MEDS: Aspirin 325 mg Enteric Coated Tablet PO SCH (10:20)
[2021-08-12] MEDS: Enoxaparin Sodium 40 MG/0.4 ML SYRINGE SC SCH (10:21)
[2021-08-12] MEDS: Escitalopram Oxalate 20 mg Tablet PO SCH (10:21)
[2021-08-12] MEDS: Pantoprazole 40 MG VIAL IVP SCH (10:21)
[2021-08-12] MEDS: Carvedilol 6.25 MG TAB PO SCH ×2 (10:21→21:44)
[2021-08-12] MEDS ORDERED: Piperacillin/Tazobactam 3.375 GM in Sodium Chloride 0.9% 100 ML IVPB SCH ×2 (14:00→18:00)
[2021-08-12 14:09] LABS: ALT (SGPT) 45 U/L (8-55); AST (SGOT) 46 U/L (5-34); Alkaline Phosphatase 89 U/L (40-110); Bilirubin, Direct 0.4 mg/dL (0.1-0.3); Bilirubin, Total 1.2 mg/dL (0.2-1.2); Protein, Total 5.3 g/dL (5.8-8.1)
[2021-08-12] MEDS: 1/2 NS w/KCL 20 mEq 1,000 ML IV SCH (14:21)
[2021-08-12] MEDS: Potassium Chloride 10 MEQ in Premix Bag 1 BAG IVPB SCH ×2 (14:21→17:17)
[2021-08-12] MEDS: Gabapentin 300 MG CAP PO SCH (21:44)
[2021-08-12] MEDS: Estradiol 1 MG TAB PO SCH (21:44)
[2021-08-12] MEDS: Atorvastatin Calcium 40 MG TAB PO SCH (21:44)
[2021-08-12] MEDS: Piperacillin/Tazobactam 3.375 GM in Sodium Chloride 0.9% 100 ML IVPB SCH (21:47)
[2021-08-12] MEDS: Floranex 1 GM Packet PO SCH (22:40)
[2021-08-13] MEDS: Ketorolac Tromethamine 30 MG/ML VIAL IVP SCH ×5 (00:36→23:33)
[2021-08-13] MEDS ORDERED: Norepinephrine 8 MG/0.9% NS 250 ML ONE (01:34)
[2021-08-13] MEDS ORDERED: VANCOMYCIN IVPB SCH (02:00)
[2021-08-13 02:05] LABS: Hemoglobin 10.3 g/dL (12.0-16.0); Mean Corpuscular HGB CONC 33.1 g/dL (32.0-36.0); Mean Corpuscular Volume 93.8 fL (78.0-98.0); Mean Platelet Volume 8.9 fL (7.4-10.4); Platelet Count 198 thou/uL (130-400); RBC Distribution Width 14.6 % (11.5-14.5); Red Blood Cell (RBC) Count 3.31 mill/uL (4.20-5.40); White Blood Cell (WBC) Count 19.4 thou/uL (4.8-10.8)
[2021-08-13 02:12] LABS: Lactic Acid 1.1 mmol/L (0.5-2.2)
[2021-08-13 02:20] LABS: Band 35 % (5-11); Lymphocytes 8 % (21-51); MDiff Complete? YES; Monocytes 4 % (0-10); Neutrophil 53 % (42-75)
[2021-08-13 02:47] LABS: ALT (SGPT) 24 U/L (8-55); AST (SGOT) 31 U/L (5-34); Alkaline Phosphatase 64 U/L (40-110); Anion Gap 15 mmol/L (10-20); BUN (Urea Nitrogen) 26 mg/dL (9.8-20.1); Calc. Creatinine Clearance 56 mL/min (70-130); Calcium 7.6 mg/dL (7.8-10.44); Carbon Dioxide 24 mmol/L (23-31); Chloride 102 mmol/L (98-107); Estimated GFR 70; Globulin 1.8 g/dL (2.4-3.5); Glucose 113 mg/dL (80-115); Protein, Total 3.8 g/dL (5.8-8.1); Sodium 138 mmol/L (136-145)
[2021-08-13] MEDS ORDERED: Electrolyte Replacement Protocol 1 EACH FS PRN ×2 (03:19→13:03)
[2021-08-13] MEDS ORDERED: Norepinephrine 8 MG/0.9% NS 250 ML IVPB SCH (03:30)
[2021-08-13] MEDS: Potassium Chloride 20 MEQ in Premix Bag 1 BAG IVPB SCH ×2 (03:41→06:19)
[2021-08-13 03:46] LABS: ALT (SGPT) 24 U/L (8-55); AST (SGOT) 36 U/L (5-34); Alkaline Phosphatase 69 U/L (40-110); Bilirubin, Direct 0.5 mg/dL (0.1-0.3); Protein, Total 3.8 g/dL (5.8-8.1)
[2021-08-13] MEDS ORDERED: Magnesium 2 GM/50 ML(in water) 2 GM in Premix Bag 1 BAG IVPB SCH (05:00)
[2021-08-13] MEDS: Piperacillin/Tazobactam 3.375 GM in Sodium Chloride 0.9% 100 ML IVPB SCH ×3 (06:19→21:00)
[2021-08-13] MEDS ORDERED: ISOVUE-370 76%-LOCM 1 ML ONE (08:00)
[2021-08-13 10:57] LABS: Potassium 3.7 mmol/L (3.5-5.1)
[2021-08-13] MEDS: Escitalopram Oxalate 20 mg Tablet PO SCH (10:59)
[2021-08-13] MEDS: Carvedilol 6.25 MG TAB PO SCH ×3 (10:59→21:44)
[2021-08-13] MEDS: Enoxaparin Sodium 40 MG/0.4 ML SYRINGE SC SCH (11:00)
[2021-08-13] MEDS: Aspirin 325 mg Enteric Coated Tablet PO SCH (11:00)
[2021-08-13] MEDS: Pantoprazole 40 MG VIAL IVP SCH (11:01)
[2021-08-13] MEDS: Empagliflozin 10 MG TAB PO SCH (11:01)
[2021-08-13] MEDS: 1/2 NS w/KCL 20 mEq 1,000 ML IV SCH (11:01)
[2021-08-13] MEDS: Vancomycin HCl 750 MG in Sodium Chloride 0.9% 250 ML 250 ML IVPB SCH (14:06)
[2021-08-13] MEDS ORDERED: Lactated Ringer's 1,000 ML IV SCH (18:15)
[2021-08-13 18:32] LABS: Actual Bicarbonate (HCO3a) 21.6 mEq/L (22-28); Base Excess (BEa) -0.8 mEq/L (-2.0 to +3.0); CO2 Tension 28.6 mmHg (35.0-45.0); Hemoglobin (Hb) 11.4 g/dL (12.0-16.0); O2 Tension (PaO2), arterial 75.9 mmHg (> 80.0)
[2021-08-13 18:41] LABS: Bacteria/HPF None Seen HPF (None Seen); Bilirubin Negative (Negative); Blood, Urine Negative (Negative); Clarity Clear (Clear); Glucose, Urine (Dipstick) Greater than 1000 mg/dL (Negative); Ketone, Urine 40 mg/dL (Negative); Leukocyte Negative Leu/uL (Negative); Nitrite Negative (Negative); Protein, Urine (Dipstick) 30 mg/dL (Neg-Trace); RBC/HPF None Seen HPF (0-3); Specific Gravity, Urine 1.034 (1.002-1.036); Squamous Epithelial 0-3 HPF (0-3); Urobilinogen Normal mg/dL (Less than 2); WBC/HPF 0-3 HPF (0-3)
[2021-08-13 18:43] LABS: Urine Culture Reflex No No
[2021-08-13] MEDS ORDERED: AMPicillin 2 GM in Sodium Chloride 0.9% 100 ML IVPB SCH (21:00)
[2021-08-13] MEDS: Estradiol 1 MG TAB PO SCH (21:44)
[2021-08-13] MEDS: Atorvastatin Calcium 40 MG TAB PO SCH (21:44)
[2021-08-13] MEDS: Floranex 1 GM Packet PO SCH (21:44)
[2021-08-13] MEDS: Gabapentin 300 MG CAP PO SCH (21:44)
[2021-08-13] MEDS: Dexamethasone 4 mg/ml Vial SLOW IVP SCH (23:33)
[2021-08-14] MEDS: Vancomycin HCl 750 MG in Sodium Chloride 0.9% 250 ML 250 ML IVPB SCH ×3 (01:59→22:50)
[2021-08-14] MEDS: Ampicillin 2 GM in Sodium Chloride 0.9% 100 ML IVPB SCH ×2 (03:21→10:04)
[2021-08-14] MEDS: 1/2 NS w/KCL 20 mEq 1,000 ML IV SCH ×2 (04:36→20:10)
[2021-08-14 05:13] LABS: Puncture Site RBA
[2021-08-14] MEDS: Dexamethasone 4 mg/ml Vial SLOW IVP SCH ×2 (05:26→12:34)
[2021-08-14] MEDS: Ketorolac Tromethamine 30 MG/ML VIAL IVP SCH ×3 (05:26→17:53)
[2021-08-14] MEDS: Piperacillin/Tazobactam 3.375 GM in Sodium Chloride 0.9% 100 ML IVPB SCH ×2 (05:27→14:15)
[2021-08-14 05:29] LABS: ALT (SGPT) 26 U/L (8-55); AST (SGOT) 42 U/L (5-34); Albumin 2.1 g/dL (3.4-4.8); Alkaline Phosphatase 80 U/L (40-110); Bilirubin, Direct 0.4 mg/dL (0.1-0.3); Bilirubin, Total 0.8 mg/dL (0.2-1.2); Protein, Total 4.5 g/dL (5.8-8.1)
[2021-08-14 05:31] LABS: Anion Gap 15 mmol/L (10-20); BUN (Urea Nitrogen) 29 mg/dL (9.8-20.1); Calc. Creatinine Clearance 54 mL/min (70-130); Calcium 7.8 mg/dL (7.8-10.44); Carbon Dioxide 22 mmol/L (23-31); Chloride 104 mmol/L (98-107); Estimated GFR 60; Glucose 108 mg/dL (80-115); Potassium 3.7 mmol/L (3.5-5.1); Sodium 137 mmol/L (136-145)
[2021-08-14 06:35] LABS: Hemoglobin 10.9 g/dL (12.0-16.0); Mean Corpuscular HGB CONC 31.8 g/dL (32.0-36.0); Mean Corpuscular Hemoglobin 30.1 pg (27.0-31.0); Mean Corpuscular Volume 94.9 fL (78.0-98.0); Mean Platelet Volume 9.4 fL (7.4-10.4); Platelet Count 221 thou/uL (130-400); RBC Distribution Width 14.8 % (11.5-14.5); White Blood Cell (WBC) Count 29.4 thou/uL (4.8-10.8)
[2021-08-14 07:52] LABS: Band 54 % (5-11); Lymphocytes 6 % (21-51); MDiff Complete? YES; Metamyelocyte 1 % (0-0); Neutrophil 38 % (42-75); Platelet Morphology Comment Appears Adequate; Polychromasia SLIGHT = 2-3 cells (100X) (0-2/hpf); Reactive Lymphocytes 1 % (0-10)
[2021-08-14] MEDS ORDERED: Pantoprazole 40 MG VIAL IVP SCH (09:00)
[2021-08-14] MEDS: Enoxaparin Sodium 40 MG/0.4 ML SYRINGE SC SCH (10:03)
[2021-08-14] MEDS: Carvedilol 6.25 MG TAB PO SCH ×2 (10:22→20:14)
[2021-08-14] MEDS: Escitalopram Oxalate 20 mg Tablet PO SCH (10:23)
[2021-08-14] MEDS: Aspirin 325 mg Enteric Coated Tablet PO SCH (10:23)
[2021-08-14] MEDS ORDERED: Vancomycin HCl 500 MG in Sodium Chloride 0.9% 250 ML 250 ML IVPB SCH (14:00)
[2021-08-14 14:14] LABS: Vancomycin, Trough 22.1 ug/mL
[2021-08-14] MEDS ORDERED: Meropenem 1 GM in Sodium Chloride 0.9% 100 ML IVPB SCH ×2 (15:45→23:59)
[2021-08-14 17:32] LABS: HBSAg Index 0.27 S/CO (0-0.99); Hep B Surf Ag Non-Reactive S/CO (NonReactive); Hep C IgG Ab Non-Reactive (NonReactive); Hep C Index 0.06 S/CO (0-0.79)
[2021-08-14] MEDS: Atorvastatin Calcium 40 MG TAB PO SCH (20:15)
[2021-08-14] MEDS: Floranex 1 GM Packet PO SCH (20:15)
[2021-08-14] MEDS: Gabapentin 300 MG CAP PO SCH (20:15)
[2021-08-14] MEDS: Estradiol 1 MG TAB PO SCH (20:15)
[2021-08-14 20:33] LABS: HBSAB Concentration 354.73 mIU/mL; Hep B Surf AB Reactive (NonReactive)
[2021-08-15] MEDS: Ketorolac Tromethamine 30 MG/ML VIAL IVP SCH ×5 (00:03→23:58)
[2021-08-15] MEDS: 1/2 NS w/KCL 20 mEq 1,000 ML IV SCH ×2 (01:38→13:43)
[2021-08-15] MEDS ORDERED: Vancomycin HCl 500 MG in Sodium Chloride 0.9% 100 ML IVPB SCH (02:00)
[2021-08-15 05:20] LABS: Band 34 % (5-11); Hypochromia SLIGHT = 6-15 cells (100X) (0-5/hpf); Lymphocytes 4 % (21-51); MDiff Complete? YES; Mean Corpuscular HGB CONC 32.1 g/dL (32.0-36.0); Mean Corpuscular Hemoglobin 30.5 pg (27.0-31.0); Mean Platelet Volume 9.4 fL (7.4-10.4); Monocytes 3 % (0-10); Neutrophil 59 % (42-75); Platelet Count 259 thou/uL (130-400); Platelet Morphology Comment Appears Adequate; RBC Distribution Width 14.7 % (11.5-14.5); Red Blood Cell (RBC) Count 3.27 mill/uL (4.20-5.40); White Blood Cell (WBC) Count 30.7 thou/uL (4.8-10.8)
[2021-08-15 05:56] LABS: Anion Gap 15 mmol/L (10-20); BUN (Urea Nitrogen) 32 mg/dL (9.8-20.1); Calc. Creatinine Clearance 61 mL/min (70-130); Carbon Dioxide 21 mmol/L (23-31); Chloride 106 mmol/L (98-107); Estimated GFR 70; Glucose 131 mg/dL (80-115); Potassium 3.9 mmol/L (3.5-5.1); Sodium 138 mmol/L (136-145)
[2021-08-15 06:36] LABS: ALT (SGPT) 32 U/L (8-55); AST (SGOT) 70 U/L (5-34); Albumin 2.2 g/dL (3.4-4.8); Alkaline Phosphatase 208 U/L (40-110); Bilirubin, Direct 0.5 mg/dL (0.1-0.3); Bilirubin, Total 0.8 mg/dL (0.2-1.2); Protein, Total 4.7 g/dL (5.8-8.1)
[2021-08-15] MEDS: Aspirin 325 mg Enteric Coated Tablet PO SCH (08:06)
[2021-08-15] MEDS: Carvedilol 6.25 MG TAB PO SCH ×2 (08:06→21:29)
[2021-08-15] MEDS: Escitalopram Oxalate 20 mg Tablet PO SCH (08:07)
[2021-08-15] MEDS: Pantoprazole 40 MG VIAL IVP SCH ×2 (10:03→21:28)
[2021-08-15] MEDS: Enoxaparin Sodium 40 MG/0.4 ML SYRINGE SC SCH (10:03)
[2021-08-15] MEDS: Meropenem 1 GM in Sodium Chloride 0.9% 100 ML IVPB SCH ×2 (11:55→18:28)
[2021-08-15] MEDS: Gabapentin 300 MG CAP PO SCH (21:28)
[2021-08-15] MEDS: Atorvastatin Calcium 40 MG TAB PO SCH (21:29)
[2021-08-15] MEDS: Estradiol 1 MG TAB PO SCH (21:29)
[2021-08-15] MEDS: Floranex 1 GM Packet PO SCH (21:29)
[2021-08-16 01:22] LABS: Vancomycin, Trough 9.2 ug/mL
[2021-08-16] MEDS: Meropenem 1 GM in Sodium Chloride 0.9% 100 ML IVPB SCH ×3 (02:30→19:57)
[2021-08-16] MEDS: 1/2 NS w/KCL 20 mEq 1,000 ML IV SCH ×3 (02:30→23:59)
[2021-08-16 05:13] LABS: Anion Gap 14 mmol/L (10-20); BUN (Urea Nitrogen) 28 mg/dL (9.8-20.1); Calc. Creatinine Clearance 73 mL/min (70-130); Carbon Dioxide 22 mmol/L (23-31); Chloride 107 mmol/L (98-107); Estimated GFR 84; Glucose 81 mg/dL (80-115); Potassium 4.8 mmol/L (3.5-5.1); Sodium 138 mmol/L (136-145)
[2021-08-16 05:32] LABS: Band 19 % (5-11); Hemoglobin 9.6 g/dL (12.0-16.0); Lymphocytes 8 % (21-51); MDiff Complete? YES; Mean Corpuscular Hemoglobin 30.7 pg (27.0-31.0); Mean Corpuscular Volume 93.1 fL (78.0-98.0); Mean Platelet Volume 9.3 fL (7.4-10.4); Monocytes 2 % (0-10); Neutrophil 71 % (42-75); Platelet Count 258 thou/uL (130-400); Platelet Morphology Comment Appears Adequate; RBC Distribution Width 14.5 % (11.5-14.5); RBC Morphology Normal; Red Blood Cell (RBC) Count 3.12 mill/uL (4.20-5.40); White Blood Cell (WBC) Count 22.7 thou/uL (4.8-10.8)
[2021-08-16] MEDS: Ketorolac Tromethamine 30 MG/ML VIAL IVP SCH ×3 (05:36→18:33)
[2021-08-16 05:47] LABS: ALT (SGPT) 35 U/L (8-55); AST (SGOT) 64 U/L (5-34); Albumin 2.2 g/dL (3.4-4.8); Alkaline Phosphatase 117 U/L (40-110); Bilirubin, Direct 0.2 mg/dL (0.1-0.3); Bilirubin, Total 0.6 mg/dL (0.2-1.2)
[2021-08-16] MEDS ORDERED: Communication Order-Pharmacy FS SCH (07:24)
[2021-08-16 08:30] LABS: Hemoglobin 9.5 g/dL (12.0-16.0); Platelet Count 261 thou/uL (130-400)
[2021-08-16] MEDS ORDERED: Enoxaparin Sodium 80 MG/0.8 ML SYRINGE SC SCH (09:00)
[2021-08-16] MEDS: Aspirin 325 mg Enteric Coated Tablet PO SCH (09:35)
[2021-08-16] MEDS: Enoxaparin Sodium 80 MG/0.8 ML SYRINGE SC SCH ×2 (09:35→20:12)
[2021-08-16] MEDS: Pantoprazole 40 MG VIAL IVP SCH ×2 (09:35→20:13)
[2021-08-16] MEDS: Carvedilol 6.25 MG TAB PO SCH ×2 (09:35→20:11)
[2021-08-16] MEDS: Escitalopram Oxalate 20 mg Tablet PO SCH (09:36)
[2021-08-16] MEDS: Floranex 1 GM Packet PO SCH (20:10)
[2021-08-16] MEDS: Atorvastatin Calcium 40 MG TAB PO SCH (20:11)
[2021-08-16] MEDS: Estradiol 1 MG TAB PO SCH (20:11)
[2021-08-16] MEDS: Gabapentin 300 MG CAP PO SCH (20:12)
[2021-08-17] MEDS: Meropenem 1 GM in Sodium Chloride 0.9% 100 ML IVPB SCH ×3 (02:55→18:44)
[2021-08-17 05:03] LABS: #Eosinphils 0.1 thou/uL (0.0-0.7); #Lymphocytes 1.3 thou/uL (1.20-3.40); #Monocytes 1.3 thou/uL (0.11-0.59); #Neutrophils 7.6 thou/uL (1.40-6.50); %Basophils 0.1 % (0.0-1.0); %Eosinophils 0.6 % (0.0-10.0); %Lymphocytes 12.9 % (21.0-51.0); %Monocytes 12.8 % (0.0-10.0); %Neutrophils 73.7 % (42.0-75.0); Hemoglobin 9.3 g/dL (12.0-16.0); Mean Corpuscular HGB CONC 32.6 g/dL (32.0-36.0); Mean Corpuscular Hemoglobin 30.4 pg (27.0-31.0); Mean Corpuscular Volume 93.3 fL (78.0-98.0); Platelet Count 216 thou/uL (130-400); RBC Distribution Width 14.2 % (11.5-14.5); Red Blood Cell (RBC) Count 3.04 mill/uL (4.20-5.40); White Blood Cell (WBC) Count 10.3 thou/uL (4.8-10.8)
[2021-08-17 05:25] LABS: Anion Gap 15 mmol/L (10-20); BUN (Urea Nitrogen) 14 mg/dL (9.8-20.1); Calc. Creatinine Clearance 96 mL/min (70-130); Calcium 7.7 mg/dL (7.8-10.44); Carbon Dioxide 20 mmol/L (23-31); Chloride 107 mmol/L (98-107); Estimated GFR 99; Glucose 72 mg/dL (80-115); Potassium 3.6 mmol/L (3.5-5.1); Sodium 138 mmol/L (136-145)
[2021-08-17] MEDS: Enoxaparin Sodium 80 MG/0.8 ML SYRINGE SC SCH ×2 (08:15→21:48)
[2021-08-17] MEDS: Escitalopram Oxalate 20 mg Tablet PO SCH (08:16)
[2021-08-17] MEDS: Carvedilol 6.25 MG TAB PO SCH ×2 (08:16→21:57)
[2021-08-17] MEDS: Pantoprazole 40 MG VIAL IVP SCH ×2 (08:18→21:51)
[2021-08-17] MEDS: Aspirin 325 MG TAB PO SCH (08:18)
[2021-08-17] MEDS: 1/2 NS w/KCL 20 mEq 1,000 ML IV SCH ×2 (11:41→23:02)
[2021-08-17] MEDS: Gabapentin 300 MG CAP PO SCH (21:54)
[2021-08-17] MEDS: Floranex 1 GM Packet PO SCH (21:54)
[2021-08-17] MEDS: Acetaminophen 325 MG TAB PO PRN (21:57)
[2021-08-17] MEDS: Atorvastatin Calcium 40 MG TAB PO SCH (21:57)
[2021-08-17] MEDS: Estradiol 1 MG TAB PO SCH (21:57)
[2021-08-18] MEDS: Meropenem 1 GM in Sodium Chloride 0.9% 100 ML IVPB SCH ×3 (03:20→18:41)
[2021-08-18 05:17] LABS: #Eosinphils 0.2 thou/uL (0.0-0.7); #Lymphocytes 1.6 thou/uL (1.20-3.40); #Monocytes 1.4 thou/uL (0.11-0.59); #Neutrophils 6.9 thou/uL (1.40-6.50); %Basophils 0.1 % (0.0-1.0); %Eosinophils 2.2 % (0.0-10.0); %Monocytes 13.8 % (0.0-10.0); Mean Corpuscular HGB CONC 32.5 g/dL (32.0-36.0); Mean Corpuscular Hemoglobin 30.5 pg (27.0-31.0); Mean Corpuscular Volume 93.8 fL (78.0-98.0); Platelet Count 226 thou/uL (130-400); RBC Distribution Width 14.1 % (11.5-14.5); Red Blood Cell (RBC) Count 3.61 mill/uL (4.20-5.40); White Blood Cell (WBC) Count 10.2 thou/uL (4.8-10.8)
[2021-08-18 05:37] LABS: Anion Gap 12 mmol/L (10-20); BUN (Urea Nitrogen) 7 mg/dL (9.8-20.1); Calc. Creatinine Clearance 100 mL/min (70-130); Carbon Dioxide 24 mmol/L (23-31); Chloride 104 mmol/L (98-107); Estimated GFR 100; Glucose 82 mg/dL (80-115); Potassium 3.1 mmol/L (3.5-5.1); Sodium 137 mmol/L (136-145)
[2021-08-18] MEDS ORDERED: Potassium Chloride 20 MEQ TAB PO SCH (08:00)
[2021-08-18 08:23] VITALS: BMI 26.6
[2021-08-18] MEDS: 1/2 NS w/KCL 20 mEq 1,000 ML IV SCH (08:38)
[2021-08-18] MEDS: Aspirin 325 MG TAB PO SCH (08:39)
[2021-08-18] MEDS: Escitalopram Oxalate 20 mg Tablet PO SCH (08:39)
[2021-08-18] MEDS: Pantoprazole 40 MG VIAL IVP SCH ×2 (08:39→21:02)
[2021-08-18] MEDS: Carvedilol 6.25 MG TAB PO SCH ×2 (08:39→20:59)
[2021-08-18] MEDS: Enoxaparin Sodium 80 MG/0.8 ML SYRINGE SC SCH (08:39)
[2021-08-18] MEDS: Acetaminophen 325 MG TAB PO PRN (20:58)
[2021-08-18] MEDS: Floranex 1 GM Packet PO SCH (20:58)
[2021-08-18] MEDS: Atorvastatin Calcium 40 MG TAB PO SCH (20:58)
[2021-08-18] MEDS: Apixaban 5 MG TAB PO SCH (20:59)
[2021-08-18] MEDS: Gabapentin 300 MG CAP PO SCH (21:01)
[2021-08-18] MEDS: Estradiol 1 MG TAB PO SCH (21:01)
[2021-08-19] MEDS: Meropenem 1 GM in Sodium Chloride 0.9% 100 ML IVPB SCH ×2 (03:34→10:14)
[2021-08-19 05:13] LABS: #Eosinphils 0.2 thou/uL (0.0-0.7); #Lymphocytes 1.5 thou/uL (1.20-3.40); #Monocytes 1.2 thou/uL (0.11-0.59); #Neutrophils 7.5 thou/uL (1.40-6.50); %Basophils 0.4 % (0.0-1.0); %Eosinophils 2.3 % (0.0-10.0); %Lymphocytes 14.2 % (21.0-51.0); %Monocytes 11.6 % (0.0-10.0); %Neutrophils 71.6 % (42.0-75.0); Hemoglobin 10.7 g/dL (12.0-16.0); Mean Corpuscular HGB CONC 32.7 g/dL (32.0-36.0); Mean Corpuscular Hemoglobin 30.1 pg (27.0-31.0); Mean Corpuscular Volume 91.9 fL (78.0-98.0); Mean Platelet Volume 9.6 fL (7.4-10.4); Platelet Count 251 thou/uL (130-400); RBC Distribution Width 14.1 % (11.5-14.5); Red Blood Cell (RBC) Count 3.57 mill/uL (4.20-5.40); White Blood Cell (WBC) Count 10.4 thou/uL (4.8-10.8)
[2021-08-19 05:38] LABS: Anion Gap 13 mmol/L (10-20); BUN (Urea Nitrogen) 7 mg/dL (9.8-20.1); Calc. Creatinine Clearance 100 mL/min (70-130); Calcium 7.7 mg/dL (7.8-10.44); Carbon Dioxide 24 mmol/L (23-31); Chloride 104 mmol/L (98-107); Estimated GFR 100; Glucose 85 mg/dL (80-115); Potassium 3.1 mmol/L (3.5-5.1); Sodium 138 mmol/L (136-145)
[2021-08-19] MEDS ORDERED: Potassium Chloride 20 MEQ TAB PO SCH (09:00)
[2021-08-19] MEDS: Aspirin 325 MG TAB PO SCH (09:06)
[2021-08-19] MEDS: Potassium Chloride 20 MEQ TAB PO SCH ×3 (09:06→18:07)
[2021-08-19] MEDS: Escitalopram Oxalate 20 mg Tablet PO SCH (09:07)
[2021-08-19] MEDS: Pantoprazole 40 MG VIAL IVP SCH (09:07)
[2021-08-19] MEDS: Carvedilol 6.25 MG TAB PO SCH (09:07)
[2021-08-19] MEDS: Apixaban 5 MG TAB PO SCH (09:07)
[2021-08-19 15:45] VITALS: BP 163/84; TEMP 98.1
== END 2021-08-19 19:04 | DRG 280 ==
LOC: ERS 05:19 → 2SW 11:30 → CCU 08-13 01:20 → OBSVTOIN 08-13 02:54 → IMCU/EMU 08-16 18:01 → NEURO 08-17 16:46
PROVIDERS: ADMIT Hospitalist; ATTEND Internal Medicine
PROC: 3E033XZ Introduction of Vasopressor into Peripheral Vein, Percutaneous Approach (ICD-10-PCS; principal; 2021-08-13)
DX: I51.3 Intracardiac thrombosis, not elsewhere classified (principal); I63.89 Other cerebral infarction; I21.4 Non-ST elevation (NSTEMI) myocardial infarction; R57.1 Hypovolemic shock; I50.22 Chronic systolic (congestive) heart failure; E87.2 Acidosis; I31.3 Pericardial effusion (noninflammatory); I31.9 Disease of pericardium, unspecified; G93.40 Encephalopathy, unspecified; G81.94 Hemiplegia, unspecified affecting left nondominant side; R47.01 Aphasia; I95.9 Hypotension, unspecified; R10.9 Unspecified abdominal pain; Z20.822 Contact with and (suspected) exposure to COVID-19; I25.10 Atherosclerotic heart disease of native coronary artery without angina pectoris; I11.0 Hypertensive heart disease with heart failure; E78.5 Hyperlipidemia, unspecified; F41.9 Anxiety disorder, unspecified; E87.6 Hypokalemia; K58.9 Irritable bowel syndrome, unspecified; D72.829 Elevated white blood cell count, unspecified; I25.5 Ischemic cardiomyopathy; E87.8 Other disorders of electrolyte and fluid balance, not elsewhere classified; E78.00 Pure hypercholesterolemia, unspecified; F32.A Depression, unspecified; R13.12 Dysphagia, oropharyngeal phase; R47.02 Dysphasia; D64.9 Anemia, unspecified; Z88.8 Allergy status to other drugs, medicaments and biological substances; Z95.5 Presence of coronary angioplasty implant and graft; Z95.1 Presence of aortocoronary bypass graft; Z79.899 Other long term (current) drug therapy; Z79.82 Long term (current) use of aspirin; Z90.89 Acquired absence of other organs; Z90.49 Acquired absence of other specified parts of digestive tract; Z87.891 Personal history of nicotine dependence; Z82.49 Family history of ischemic heart disease and other diseases of the circulatory system; Z78.0 Asymptomatic menopausal state
CPT/HCPCS: 36415; 36416; 36600; 70450; 70551; 71045; 71260; 74174; 74177; 74181; 76700; 80048; 80053; 80076; 80202; 80307; 81001; 82140; 82274; 82533; 82550; 82553; 82805; 83605; 83690; 83735; 83880; 84145; 84443; 84484; 85025; 85610; 85652; 85730; 86140; 86706; 86803; 87040; 87340; 93005; 93010; 93306; 96365; 96366; 96367; 96368; 96372; 96375; 96376; C9113; G0378; J0290; J0696; J1100; J1650; J1885; J2185; J2270; J2405; J2543; J3370; J3475; J3480; J3490; J7050; J7120; Q0162; Q9966; U0002; U0003; U0005

== ENCOUNTER 2022-03-13 08:07 | Day surgery (SDC) | payer MEDICARE, OTHER ==
[2022-03-10 13:58] VITALS: BMI 17.4
[2022-03-13] MEDS ORDERED: Midazolam HCl 2 mg/2 ml Vial ONE (09:52)
[2022-03-13] MEDS ORDERED: PROPOFOL 200 MG/20 ML VIAL ONE (09:57)
[2022-03-13] MEDS ORDERED: Lidocaine 1% PF 5 ML VIAL ONE (09:57)
== END 2022-03-13 11:51 | disposition home or self-care (01) ==
LOC: SDC 08:07
PROVIDERS: ATTEND Internal Medicine Gastroenterology
PROC: 0DB78ZX Excision of Stomach, Pylorus, Via Natural or Artificial Opening Endoscopic, Diagnostic (ICD-10-PCS; principal; 2022-03-13)
PROC: 0W3P8ZZ Control Bleeding in Gastrointestinal Tract, Via Natural or Artificial Opening Endoscopic (ICD-10-PCS; 2022-03-13)
DX: K31.819 Angiodysplasia of stomach and duodenum without bleeding (principal); K29.50 Unspecified chronic gastritis without bleeding; K31.7 Polyp of stomach and duodenum; D64.9 Anemia, unspecified; I25.2 Old myocardial infarction; K21.9 Gastro-esophageal reflux disease without esophagitis; I25.10 Atherosclerotic heart disease of native coronary artery without angina pectoris; I10 Essential (primary) hypertension; E78.00 Pure hypercholesterolemia, unspecified; K58.9 Irritable bowel syndrome, unspecified; Z86.010 Personal history of colon polyps; Z86.73 Personal history of transient ischemic attack (TIA), and cerebral infarction without residual deficits; Z87.891 Personal history of nicotine dependence; Z79.01 Long term (current) use of anticoagulants; Z79.899 Other long term (current) drug therapy; Z88.6 Allergy status to analgesic agent; Z93.1 Gastrostomy status; Z95.1 Presence of aortocoronary bypass graft
CPT/HCPCS: 88305; 88342; J2250; J2704

== ENCOUNTER 2022-11-30 13:27 | Outpatient (CLI) | payer MEDICARE | END 2022-11-30 13:28 | disposition home or self-care (01) | LOC: ULT 13:27 | PROVIDERS: ATTEND Nurse Practitioner Family | DX: R05.1 Acute cough (principal); K40.90 Unilateral inguinal hernia, without obstruction or gangrene, not specified as recurrent | CPT/HCPCS: 76882 ==

== ENCOUNTER 2023-07-13 20:42 | Inpatient (IN) | payer MEDICARE ==
[2023-07-13 21:47] LABS: #Basophils Less than 0.03 10x3/uL (0.0-0.2); #Eosinphils Less than 0.03 10x3/uL (0.0-0.7); %Basophils 0.2 % (0.0-1.0); %Monocytes 2.7 % (0.0-10.0); %Neutrophils 88.6 % (42.0-75.0); Hematocrit 35.1 % (36.0-47.0); Hemoglobin 12.2 g/dL (12.0-16.0); Mean Corpuscular HGB CONC 34.8 g/dL (32.0-36.0); Mean Corpuscular Hemoglobin 29.6 pg (27.0-31.0); Mean Corpuscular Volume 85.2 fL (78.0-98.0); Mean Platelet Volume 9.3 fL (7.4-10.4); Platelet Count 218 10x3/uL (130-400); RBC Distribution Width 13.5 % (11.5-14.5); Red Blood Cell (RBC) Count 4.12 mill/uL (4.20-5.40)
[2023-07-13 22:16] LABS: ALT (SGPT) 86 U/L (8-55); AST (SGOT) 170 U/L (5-34); Albumin 1.7 g/dL (3.4-4.8); Alkaline Phosphatase 124 U/L (40-110); Anion Gap 14 mmol/L (10-20); BUN (Urea Nitrogen) 12 mg/dL (9.8-20.1); Bilirubin, Total 0.6 mg/dL (0.2-1.2); CK (CPK) 3708 U/L (29-168); Calc. Creatinine Clearance 0 mL/min (70-130); Calcium 7.3 mg/dL (7.8-10.44); Carbon Dioxide 19 mmol/L (23-31); Chloride 111 mmol/L (98-107); Estimated GFR 42; Globulin 2.2 g/dL (2.4-3.5); Glucose 85 mg/dL (80-115); Potassium 2.7 mmol/L (3.5-5.1); Protein, Total 3.9 g/dL (5.8-8.1); Sodium 141 mmol/L (136-145)
[2023-07-13 22:52] LABS: Critical Call Chem Troponin I NUR.KB14@2252; Troponin I 5.997 ng/mL (< 0.028)
[2023-07-13] MEDS ORDERED: Potassium Chloride 20 MEQ TAB ONE (23:06)
[2023-07-13] MEDS ORDERED: Morphine 4 MG/ML VIAL ONE (23:06)
[2023-07-13] MEDS ORDERED: Ondansetron PF 4 MG/2 ML Vial IVP PRN (23:44)
[2023-07-14 00:13] LABS: Magnesium 1.4 mg/dL (1.6-2.6); Phosphorus 2.6 mg/dL (2.3-4.7)
[2023-07-14] MEDS ORDERED: Heparin 10,000 UNITS/ 10 ML VIAL SLOW IVP SCH (00:15)
[2023-07-14] MEDS ORDERED: Heparin 5,000 UNITS/ML VIAL ONE (00:32)
[2023-07-14] MEDS ORDERED: Heparin 25,000 units/D5W 500 ML ONE (00:33)
[2023-07-14 01:22] LABS: INR-International Normal Ratio 1.1; PTT 29.9 sec (22.9-36.1); Prothrombin Time 14.6 sec (12.0-14.7)
[2023-07-14 01:27] LABS: Troponin I 8.305 ng/mL (< 0.028)
[2023-07-14] MEDS: Magnesium 2 GM/50 ML(in water) 2 GM in Premix 1 BAG IVPB SCH ×2 (02:03→12:32)
[2023-07-14] MEDS: Lactated Ringer's 1,000 ML IV SCH ×4 (02:06→17:11)
[2023-07-14] MEDS: Heparin 25,000 units/D5W 500 ML IVPB SCH (02:49)
[2023-07-14] MEDS: Albumin 25% 25 GM (100 mL) BOT IVPB SCH (03:04)
[2023-07-14 04:16] LABS: #Basophils 0.05 10x3/uL (0.0-0.2); #Eosinphils Less than 0.03 10x3/uL (0.0-0.7); %Basophils 0.3 % (0.0-1.0); %Lymphocytes 9.7 % (21.0-51.0); %Monocytes 2.6 % (0.0-10.0); %Neutrophils 86.9 % (42.0-75.0); Hematocrit 40.8 % (36.0-47.0); Hemoglobin 13.9 g/dL (12.0-16.0); Mean Corpuscular HGB CONC 34.1 g/dL (32.0-36.0); Mean Platelet Volume 9.8 fL (7.4-10.4); Platelet Count 190 10x3/uL (130-400); RBC Distribution Width 13.7 % (11.5-14.5)
[2023-07-14] MEDS: Potassium Chloride 20 MEQ in Premix 1 BAG IVPB SCH ×2 (04:18→06:25)
[2023-07-14 04:44] LABS: ALT (SGPT) 146 U/L (8-55); AST (SGOT) 334 U/L (5-34); Alkaline Phosphatase 127 U/L (40-110); Anion Gap 15 mmol/L (10-20); BUN (Urea Nitrogen) 12 mg/dL (9.8-20.1); Bilirubin, Total 0.7 mg/dL (0.2-1.2); Calc. Creatinine Clearance 0 mL/min (70-130); Calcium 7.8 mg/dL (7.8-10.44); Carbon Dioxide 20 mmol/L (23-31); Chloride 111 mmol/L (98-107); Estimated GFR 46; Globulin 2.5 g/dL (2.4-3.5); Glucose 48 mg/dL (80-115); Magnesium 2.1 mg/dL (1.6-2.6); Potassium 3.5 mmol/L (3.5-5.1); Protein, Total 4.5 g/dL (5.8-8.1); Sodium 142 mmol/L (136-145)
[2023-07-14] MEDS ORDERED: Dextrose 5% in Water 1,000 ML IV PRN (04:49)
[2023-07-14] MEDS ORDERED: Glucagon 1 MG/ML KIT IM PRN (04:49)
[2023-07-14 04:51] LABS: CK (CPK) 7947 U/L (29-168)
[2023-07-14 04:55] LABS: Critical Call Chem Troponin I RESULT DECREASING
[2023-07-14 07:34] LABS: Bilirubin Negative (Negative); Blood, Urine 3+ (Negative); CAUTI Indications for Culture Alt mental st,lethar; Clarity Turbid (Clear); Glucose, Urine (Dipstick) Normal (Negative); Ketone, Urine Negative (Negative); Leukocyte Negative Leu/uL (Negative); Nitrite Negative (Negative); Protein, Urine (Dipstick) 20 mg/dL (Neg-Trace); RBC/HPF None Seen HPF (0-3); Squamous Epithelial None Seen HPF (0-3); Urobilinogen Normal mg/dL (Less than 2); pH, Urine 5.5 (5.0-9.0)
[2023-07-14 07:38] LABS: Bacteria/HPF 1+ HPF (None Seen)
[2023-07-14 07:39] LABS: Urine Culture Reflex No No
[2023-07-14 07:53] VITALS: BMI 15.3
[2023-07-14] MEDS: cefTRIAXone\\ROCEPHIN 2 GM in Sodium Chloride 0.9% 100 ML IVPB SCH (10:56)
[2023-07-14 11:06] LABS: PTT 142.9 sec (22.9-36.1)
[2023-07-14 12:01] LABS: Critical Call Chem Troponin I DOWN; Troponin I 4.837 ng/mL (< 0.028)
[2023-07-14] MEDS: Enoxaparin 30 MG (0.3 mL) SYRINGE SC SCH (12:24)
[2023-07-14] MEDS: hydrOXYzine 25 MG TAB PO PRN (15:33)
[2023-07-14 16:16] LABS: Critical Call Chem Troponin I DOWN; Troponin I 4.222 ng/mL (< 0.028)
[2023-07-14] MEDS ORDERED: Metoclopramide HCl 10 MG (2 mL) VIAL IVP PRN (16:27)
[2023-07-14] MEDS ORDERED: Electrolyte Replacement Protocol 1 EACH FS SCH (16:30)
[2023-07-14 16:51] VITALS: BMI 15.3
[2023-07-14] MEDS: Potassium Chloride 20 MEQ TAB PO SCH (17:10)
[2023-07-14] MEDS: Escitalopram Oxalate 10 mg Tablet PO SCH (21:12)
[2023-07-14] MEDS: Levothyroxine Sodium 50 MCG TAB PO SCH (21:12)
[2023-07-14] MEDS: Pantoprazole DR 40 MG TAB PO SCH (21:12)
[2023-07-14] MEDS: Melatonin 3 MG TAB PO SCH (21:12)
[2023-07-14] MEDS: Mirtazapine 30 MG Soltab PO SCH (21:12)
[2023-07-14] MEDS: Clopidogrel Bisulfate 75 MG TAB PO SCH (21:12)
[2023-07-14] MEDS: Metoclopramide HCl 10 MG TAB PO SCH (21:12)
[2023-07-14] MEDS: Acetaminophen 500 MG TAB PO PRN (21:12)
[2023-07-14 23:14] LABS: ALT (SGPT) 153 U/L (8-55); AST (SGOT) 308 U/L (5-34); Albumin 1.7 g/dL (3.4-4.8); Alkaline Phosphatase 90 U/L (40-110); Anion Gap 11 mmol/L (10-20); BUN (Urea Nitrogen) 10 mg/dL (9.8-20.1); Bilirubin, Total 0.5 mg/dL (0.2-1.2); Calc. Creatinine Clearance 35 mL/min (70-130); Calcium 7.3 mg/dL (7.8-10.44); Carbon Dioxide 21 mmol/L (23-31); Chloride 111 mmol/L (98-107); Estimated GFR 68; Globulin 1.8 g/dL (2.4-3.5); Glucose 75 mg/dL (80-115); Potassium 3.9 mmol/L (3.5-5.1); Protein, Total 3.5 g/dL (5.8-8.1); Sodium 139 mmol/L (136-145)
[2023-07-14 23:25] LABS: Critical Call Chem Troponin I NUR.KAN@2325; Troponin I 4.866 ng/mL (< 0.028)
[2023-07-15] MEDS: PHOS-NAK 1 PKT PACK PO SCH ×2 (01:47→11:32)
[2023-07-15 06:25] LABS: #Basophils 0.03 10x3/uL (0.0-0.2); #Eosinphils Less than 0.03 10x3/uL (0.0-0.7); %Basophils 0.3 % (0.0-1.0); %Eosinophils 0.1 % (0.0-10.0); %Lymphocytes 19.3 % (21.0-51.0); %Monocytes 2.2 % (0.0-10.0); %Neutrophils 77.6 % (42.0-75.0); Hematocrit 34.5 % (36.0-47.0); Hemoglobin 11.8 g/dL (12.0-16.0); Mean Corpuscular HGB CONC 34.2 g/dL (32.0-36.0); Mean Corpuscular Hemoglobin 29.5 pg (27.0-31.0); Mean Corpuscular Volume 86.3 fL (78.0-98.0); Platelet Count 181 10x3/uL (130-400); RBC Distribution Width 14.2 % (11.5-14.5)
[2023-07-15 06:47] LABS: ALT (SGPT) 168 U/L (8-55); AST (SGOT) 307 U/L (5-34); Albumin 1.9 g/dL (3.4-4.8); Alkaline Phosphatase 99 U/L (40-110); Anion Gap 10 mmol/L (10-20); BUN (Urea Nitrogen) 9 mg/dL (9.8-20.1); Bilirubin, Total 0.6 mg/dL (0.2-1.2); Calc. Creatinine Clearance 37 mL/min (70-130); Calcium 7.5 mg/dL (7.8-10.44); Carbon Dioxide 19 mmol/L (23-31); Chloride 113 mmol/L (98-107); Estimated GFR 72; Globulin 1.9 g/dL (2.4-3.5); Glucose 61 mg/dL (80-115); Magnesium 2.2 mg/dL (1.6-2.6); Potassium 4.2 mmol/L (3.5-5.1); Protein, Total 3.8 g/dL (5.8-8.1); Sodium 138 mmol/L (136-145)
[2023-07-15 07:19] LABS: Troponin I 5.291 ng/mL (< 0.028)
[2023-07-15 08:34] LABS: Free T4 (Free Thyroxine) 0.92 ng/dL (0.70-1.48); Thyroid Stimulating Hormone 1.4931 uIU/mL (0.35-4.94)
[2023-07-15] MEDS: Enoxaparin 30 MG (0.3 mL) SYRINGE SC SCH (11:32)
[2023-07-15 12:10] LABS: Acetaminophen Less than 10 mcg/mL (10.0-30.0)
[2023-07-15 12:12] LABS: Phosphorus 1.7 mg/dL (2.3-4.7)
[2023-07-15 12:14] LABS: Critical Call Chem Troponin I RESULT DECREASING; Troponin I 3.317 ng/mL (< 0.028)
[2023-07-15 12:15] LABS: Iron 27 ug/dL (50-170)
[2023-07-15 12:24] LABS: INR-International Normal Ratio 1.5; Prothrombin Time 18.5 sec (12.0-14.7)
[2023-07-15 12:32] LABS: HBCM Index 0.09 S/CO (0-0.79); HBsAg Index 0.27 S/CO (0-0.99); Hep A IgM AB NONREACTIVE (NonReactive); Hep A IgM S/CO 0.17 S/CO (0-0.79); Hep B Surf Ag NONREACTIVE S/CO (NonReactive); Hep C IgG Ab NONREACTIVE S/CO (NonReactive); Hep C Index 0.08 S/CO (0-0.79); Hepatitis B Core IgM Abs NONREACTIVE S/CO (NonReactive)
[2023-07-15 13:14] LABS: MONO NEGATIVE CONTROL ZONE White (Negative) (White); MONO POSITIVE CONTROL Pink Line (Positive) (PINK/RED); Mononucleosis NEGATIVE (NEGATIVE)
[2023-07-15] MEDS: Dextrose 50% Abboject 50 ML SYRINGE SLOW IVP PRN (14:16)
[2023-07-15] MEDS ORDERED: Dextrose 5 %-0.45 % NaCl 1,000 ML IV SCH (16:30)
[2023-07-15] MEDS: Dextrose 5%-Lactated Ringers 1,000 ML IV SCH (17:30)
[2023-07-15 19:18] LABS: Troponin I 3.804 ng/mL (< 0.028)
[2023-07-16] MEDS: hydrOXYzine 25 MG TAB PO SCH (02:00)
[2023-07-16 05:28] LABS: EBV VCA IgM <36.0 U/mL (0.0-35.9)
[2023-07-16 05:54] LABS: #Basophils Less than 0.03 10x3/uL (0.0-0.2); %Basophils 0.2 % (0.0-1.0); %Eosinophils 0.3 % (0.0-10.0); %Lymphocytes 23.8 % (21.0-51.0); %Monocytes 2.3 % (0.0-10.0); %Neutrophils 72.8 % (42.0-75.0); Hematocrit 33.1 % (36.0-47.0); Hemoglobin 11.1 g/dL (12.0-16.0); Mean Corpuscular HGB CONC 33.5 g/dL (32.0-36.0); Mean Corpuscular Volume 86.4 fL (78.0-98.0); Mean Platelet Volume 9.9 fL (7.4-10.4); Platelet Count 151 10x3/uL (130-400); RBC Distribution Width 14.3 % (11.5-14.5); Red Blood Cell (RBC) Count 3.83 mill/uL (4.20-5.40)
[2023-07-16 06:22] LABS: ALT (SGPT) 145 U/L (8-55); AST (SGOT) 157 U/L (5-34); Albumin 1.6 g/dL (3.4-4.8); Alkaline Phosphatase 92 U/L (40-110); Anion Gap 8 mmol/L (10-20); BUN (Urea Nitrogen) 6 mg/dL (9.8-20.1); Bilirubin, Total 0.5 mg/dL (0.2-1.2); CK (CPK) 905 U/L (29-168); Calc. Creatinine Clearance 41 mL/min (70-130); Calcium 7.4 mg/dL (7.8-10.44); Carbon Dioxide 21 mmol/L (23-31); Chloride 115 mmol/L (98-107); Estimated GFR 82; Globulin 1.9 g/dL (2.4-3.5); Glucose 90 mg/dL (80-115); Magnesium 1.7 mg/dL (1.6-2.6); Potassium 4.2 mmol/L (3.5-5.1); Protein, Total 3.5 g/dL (5.8-8.1); Sodium 140 mmol/L (136-145)
[2023-07-16] MEDS: Magnesium 2 GM/50 ML(in water) 2 GM in Premix 1 BAG IVPB SCH (09:09)
[2023-07-16 12:56] LABS: ANA Symphony (Qualitative) Negative (Negative); ANA Symphony (Quantitative) 0.3 Ratio (< 0.7 Negative); EliA Vaculitis New Method **** NEW METHOD ****; Mitochondrial Ab 0.9 U/mL (<4 Negative); dsDNA IgG Antibody 1.1 IU/mL (<10 Negative)
[2023-07-16 16:16] VITALS: BP 115/73; TEMP 98.6
[2023-07-18 14:14] LABS: Smooth Muscle Total ABS 5 Units (0-19)
== END 2023-07-16 17:05 | DRG 564 ==
LOC: ERS 20:42 → 2NO 23:47
PROVIDERS: ADMIT Internal Medicine; ATTEND Internal Medicine
PROC: 4A00X4Z Measurement of Central Nervous Electrical Activity, External Approach (ICD-10-PCS; principal; 2023-07-15)
DX: T79.6XXA Traumatic ischemia of muscle, initial encounter (principal); I21.A1 Myocardial infarction type 2; I50.22 Chronic systolic (congestive) heart failure; N17.9 Acute kidney failure, unspecified; W18.39XA Other fall on same level, initial encounter; I25.10 Atherosclerotic heart disease of native coronary artery without angina pectoris; E78.5 Hyperlipidemia, unspecified; F41.9 Anxiety disorder, unspecified; F32.A Depression, unspecified; E87.6 Hypokalemia; E83.42 Hypomagnesemia; I11.0 Hypertensive heart disease with heart failure; E86.0 Dehydration; Z86.73 Personal history of transient ischemic attack (TIA), and cerebral infarction without residual deficits; Z90.49 Acquired absence of other specified parts of digestive tract; Z95.1 Presence of aortocoronary bypass graft; Z95.9 Presence of cardiac and vascular implant and graft, unspecified; Z87.891 Personal history of nicotine dependence
CPT/HCPCS: 36415; 36416; 70450; 71045; 72072; 72220; 76705; 80053; 80074; 80143; 81001; 82390; 82550; 83516; 83540; 83605; 83615; 83735; 84100; 84439; 84443; 84481; 84484; 85025; 85610; 85730; 86015; 86038; 86225; 86308; 86664; 86665; 87040; 93005; 93306; 95700; 95711; 95819; 96374; 96375; 96376; 80307; J0696; J1644; J1650; J2270; J3475; J3480; J3490; J7120; J7999; P9047

== ENCOUNTER 2023-08-01 16:23 | Emergency (ER) | payer MEDICARE ==
[2023-08-01 17:54] LABS: #Basophils 0.08 10x3/uL (0.0-0.2); #Eosinphils Less than 0.03 10x3/uL (0.0-0.7); %Basophils 0.9 % (0.0-1.0); %Eosinophils 0.1 % (0.0-10.0); %Lymphocytes 23.4 % (21.0-51.0); %Monocytes 5.8 % (0.0-10.0); %Neutrophils 69.1 % (42.0-75.0); Hematocrit 36.8 % (36.0-47.0); Hemoglobin 12.2 g/dL (12.0-16.0); Mean Corpuscular HGB CONC 33.2 g/dL (32.0-36.0); Mean Corpuscular Hemoglobin 29.2 pg (27.0-31.0); Mean Platelet Volume 9.4 fL (7.4-10.4); Platelet Count 485 10x3/uL (130-400); RBC Distribution Width 14.3 % (11.5-14.5); Red Blood Cell (RBC) Count 4.18 mill/uL (4.20-5.40)
[2023-08-01 18:08] LABS: ALT (SGPT) 49 U/L (8-55); AST (SGOT) 43 U/L (5-34); Albumin 1.9 g/dL (3.4-4.8); Alkaline Phosphatase 114 U/L (40-110); Anion Gap 13 mmol/L (10-20); BUN (Urea Nitrogen) 16 mg/dL (9.8-20.1); Bilirubin, Total 0.6 mg/dL (0.2-1.2); Calc. Creatinine Clearance 0 mL/min (70-130); Carbon Dioxide 24 mmol/L (23-31); Chloride 105 mmol/L (98-107); Estimated GFR 66; Globulin 3.1 g/dL (2.4-3.5); Glucose 69 mg/dL (80-115); Lipase 8 U/L (8-78); Potassium 3.6 mmol/L (3.5-5.1); Sodium 138 mmol/L (136-145)
== END 2023-08-01 22:51 | disposition home or self-care (01) ==
LOC: ERS 16:23
DX: R53.1 Weakness (principal); E86.0 Dehydration; E78.00 Pure hypercholesterolemia, unspecified; I10 Essential (primary) hypertension; Z87.891 Personal history of nicotine dependence; Z79.899 Other long term (current) drug therapy
CPT/HCPCS: 80053; 83690; 85025; 93005